=== PATIENT | male | born 1965 | race Caucasian/White ===

== ENCOUNTER 2018-08-16 02:39 | Inpatient (IN) ==
[2018-08-16] MEDS ORDERED: SODIUM CHLORIDE 0.9% 250 ML IV PRN ×2 (02:47→06:31)
[2018-08-16] MEDS ORDERED: SODIUM CHLORIDE 0.9% 1000ML 1,000 ML IV ONE (02:47)
[2018-08-16] MEDS ORDERED: PANTOprazole 80 MG in DEXTROSE 5% 100 ML IV ONE (03:05)
[2018-08-16 03:07] LABS: Hematocrit (blood only) 32.2 % (42-52); Hemoglobin 10.6 g/dL (14.0-18.0); Mean Corpuscular Hgb Conc 32.9 g/dL (32-36); Mean Corpuscular Volume 80.9 fL (80-100); Mean Platelet Volume 11.4 fL (7.4-10.4); Platelet Count 314 K/uL (130-400); RDW Coefficient of Variation 15.4 % (11.5-14.5); RDW Standard Deviation 44.5 fL (36.4-46.3); Red Blood Count 3.98 M/uL (4.7-6.1); White Blood Count 25.35 K/uL (4.8-10.8)
[2018-08-16] MEDS ORDERED: MULTI-VITAMIN INFUSION 10 ML, THIAMINE HCL 100 MG, FOLIC ACID 1 MG in SODIUM CHLORIDE 0... IV SCH ×2 (03:15→09:00)
[2018-08-16 03:23] LABS: Albumin Level 3.8 gm/dl (3.4-5.0); BUN Creatinine Ratio 32.9 (10-20); Calcium 9.2 mg/dl (8.5-10.1); Creatinine Clr Calc Pharmacy 45.5 ml/min; Est GFR (Non-African American) 34.5; Magnesium 1.6 mg/dl (1.8-2.4); Potassium 3.4 mmol/L (3.5-5.1)
[2018-08-16 03:28] LABS: Bilirubin,Total 0.8 mg/dl (0.2-1); Globulin 3.8 gm/dl (2.5-4.0); Total Protein 7.6 gm/dl (6.4-8.2); Troponin I 0.04 ng/ml (0-0.045)
[2018-08-16] MEDS: PANTOPRAZOLE BOLUS/DRIP 1 EA IV STA ×2 (03:34→07:07)
[2018-08-16 03:35] LABS: Basophils # (auto) 0.02 K/uL (0-0.2); Basophils % (auto) 0.1 %; Immature Granulocytes # (auto) 0.11 K/uL (0.00-0.02); Immature Granulocytes % (auto) 0.4 %; Lymphocytes # (auto) 1.76 K/uL (1.2-3.4); Lymphocytes % (auto) 6.9 %; Monocytes # (auto) 1.97 K/uL (0.11-0.59); Monocytes % (auto) 7.8 %; Neutrophils # (auto) 21.49 K/uL (1.4-6.5); Neutrophils % (auto) 84.8 %
[2018-08-16] MEDS ORDERED: ACETAMINOPHEN 1,000 MG/100 ML VIAL IV STA (03:46)
[2018-08-16] MEDS ORDERED: cefTRIAXone SODIUM 1,000 MG/50 ML BAG IV STA (03:46)
[2018-08-16] MEDS: PANTOprazole 40 MG in DEXTROSE 5% 100 ML IV SCH ×5 (03:52→23:57)
[2018-08-16] MEDS ORDERED: MAGNESIUM SULFATE / D5W 1 GM/100 ML BAG IV ONE ×2 (03:52→09:00)
[2018-08-16 04:44] LABS: Hematocrit (blood only) 26.2 % (42-52); Hemoglobin 8.7 g/dL (14.0-18.0); Mean Corpuscular Hgb Conc 33.2 g/dL (32-36); Mean Corpuscular Volume 80.4 fL (80-100); Mean Platelet Volume 10.5 fL (7.4-10.4); Platelet Count 215 K/uL (130-400); RDW Coefficient of Variation 15.3 % (11.5-14.5); Red Blood Count 3.26 M/uL (4.7-6.1); White Blood Count 20.06 K/uL (4.8-10.8)
[2018-08-16] MEDS ORDERED: OCTREOTIDE ACETATE 50 MCG in SYRINGE 9.5 ML IV STA (04:46)
[2018-08-16 04:54] LABS: INR 1.2 (0.9-1.1)
[2018-08-16] MEDS ORDERED: SODIUM CHLORIDE 0.9% 1000ML 1,000 ML IV SCH (05:00)
[2018-08-16 05:03] LABS: BUN Creatinine Ratio 37.3 (10-20); Calcium 7.8 mg/dl (8.5-10.1); Est GFR (African American) 51.5; Est GFR (Non-African American) 44.4; Potassium 3.7 mmol/L (3.5-5.1)
[2018-08-16] MEDS: OCTREOTIDE ACETATE 500 MCG in 0.9 % SODIUM CHLORIDE 100 ML IV SCH ×3 (05:04→23:57)
[2018-08-16] MEDS ORDERED: LORazepam 0.5 MG/1 ML VIAL IV STA (05:12)
[2018-08-16] MEDS ORDERED: ONDANSETRON INJ 2 MG/ML 2 ML VIAL IV STA (05:12)
[2018-08-16] MEDS ORDERED: ONDANSETRON INJ 2 MG/ML 2 ML VIAL ONE (05:12)
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
[2018-08-16] MEDS ORDERED: ALBUT/IPRATROP 3MG/0.5MG NEB 3 ML VIAL INH PRN (06:07)
[2018-08-16] MEDS ORDERED: ICU PROTOCOL FOR HYPERGLYCEMIA PRN (06:07)
[2018-08-16] MEDS ORDERED: LORazepam 1 MG/2 ML VIAL IV PRN (06:38)
--- NOTE | 2018-08-16 06:53 | CT Scan Report ---
CT SCAN OF THE ABDOMEN AND PELVIS WITHOUT CONTRAST CLINICAL HISTORY: left abd pain PERSISTENT HICCUPS COMPARISON STUDY: No previous studies for comparison. TECHNIQUE: CT scan of the abdomen and pelvis was performed from the lung bases to the proximal femurs . Images are reviewed in the axial, sagittal, and coronal planes. IV contrast was not administered fo r this examination. A dose lowering technique was utilized adhering to the principles of ALARA. CT DOSE: 1918.55 mGy.cm FINDINGS: Lower chest: There is a moderate hiatal hernia Liver: There is severe hepatic steatosis. Gallbladder: Unremarkable. Spleen: Normal in size and attenuation. Pancreas: Unremarkable. Adrenal glands: Unremarkable. Kidneys: The unenhanced kidneys are normal in size without hydronephrosis. There is no contour deform ing renal mass lesion. No renal calculi are identified. Bowel: There are no transition zones indicate bowel obstruction. The appendix appears normal. There i s no acute diverticulitis. Peritoneum: There is no intraperitoneal free air or abdominal ascites. Vasculature: The abdominal aorta is normal in course and caliber. Adenopathy: None. Pelvic viscera: The bladder, and pelvic viscera are unremarkable. Skeletal structures: There is bilateral L4 spondylolysis. There is a grade 2/4 spondylolisthesis of L 4 on L5. IMPRESSION: 1. No evidence of bowel obstruction. No evidence of free air 2. Hiatal hernia 3. No renal, ureteral, or bladder calculi identified 4. Normal appendix. No evidence of acute diverticulitis. 5. Hepatic steatosis. Electronically signed by: Alvaro Garcia M.D. 08/16/2018 6:52 AM
--- NOTE | 2018-08-16 07:00 | XRay Report ---
XR chest 1V portable CLINICAL HISTORY: sob ABDOMINAL PAIN COMPARISON STUDY: No previous studies for comparison. FINDINGS: The heart is at the upper limits of normal in size. There is a hiatal hernia. There is no f ailure. There is no focal pulmonary consolidation. There are no pleural effusions.[ IMPRESSION: No active disease in the chest. Electronically signed by: Alvaro Garcia M.D. 08/16/2018 6:59 AM
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
[2018-08-16 07:06] LABS: Hemoglobin 8.6 g/dL (14.0-18.0)
--- NOTE | 2018-08-16 08:25 | Ultrasound Report ---
DOPPLER ULTRASOUND OF THE HEPATIC AND PORTAL VASCULATURE CLINICAL HISTORY: Upper GI bleeding. COMPARISON STUDY: Abdominal CT dated 08/16/2018. FINDINGS: Real-time, grayscale, and color Doppler sonography of the hepatic and portal vasculature is performed. The main portal vein is patent with normal direction of flow. Velocities within the main portal vein measure up to 23 cm/s. The right and left portal veins are patent with normal direction o f flow. The hepatic veins are patent. Hepatic venous waveforms are preserved. The hepatic artery is p atent with velocities measuring up to 92 cm/s. The visualized portions of the splenic vein appear pat ient. The liver is enlarged and there is severe hepatic steatosis. IMPRESSION: 1. Normal Doppler assessment of the hepatic and portal vasculature. 2. Hepatomegaly and severe hepatic steatosis. Electronically signed by: Everardo Sanches M.D. 08/16/2018 8:24 AM
[2018-08-16] MEDS: THIAMINE HCL 500 MG in 0.9 % SODIUM CHLORIDE 100 ML IV SCH ×2 (10:13→16:40)
[2018-08-16] MEDS: NSS + 20MEQ KCL 20 MEQ/1,000 ML BAG IV SCH ×3 (10:13→23:57)
[2018-08-16 10:25] LABS: Amphetamines+Metham, Urine Neg (Neg); Barbiturates, Urine Neg (Neg); Benzodiazepine, Urine Neg (Neg); Cocaine, Urine Neg (Neg); MDMA (Ecstacy), Urine Neg (Neg); Methadone, Urine Neg (Neg); Opiate, Urine Neg (Neg); Phencyclidine, Urine Neg (Neg)
[2018-08-16 10:35] LABS: Hematocrit (blood only) 29.2 % (42-52); Hemoglobin 9.9 g/dL (14.0-18.0)
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
[2018-08-16 13:28] LABS: Albumin Level 3.3 gm/dl (3.4-5.0); Bilirubin Direct 0.2 mg/dl (0-0.2); Total Protein 6.4 gm/dl (6.4-8.2)
--- NOTE | 2018-08-16 15:11 | Hospitalist Progress Note ---
Date of Service August 16, 2018 Assessment & Plan (1) Upper GI bleed: (2) Anemia: (3) Hyponatremia: (4) Hypomagnesemia: (5) Acute kidney injury: (6) Tachycardia: (7) Alcohol abuse: (8) Lactic acidosis: (9) Hyperglycemia: 53-year-old male Admitted because of upper GI bleeding, has been on a 10- day alcohol binge Prior to the admission Upper GI bleed With history of alcohol abuse, binge drinking: Differential diagnosis include varices, gastritis, peptic ulcerative disease, Esophageal mucous tearing, Etc. GI input appreciated, continueProtonix drip, octreotide drip. H&H has been stable, currently hemoglobin 9.9 from 8.6 after transfusion Follow-up H&H GI on the case, recent EGD e at [facility] approximately 6 months ago, being told that he had varices. Alcohol abuse, fatty liver, Possible signs of alcohol withdrawal Subjective upon Admission Continue with banana bag at 200 mils per hour. Alcohol withdrawal protocol Acute blood loss anemia likely from the above upper GI bleeding Hyponatremia,Hypomagnesemia, hypokalemia, Likely from binge drinking, Follow-up Acute kidney injury: Creatinine level is 1.7 from 2.13, Continue fluid rehydration and transfusions, and repeat laboratory serially. Possible sepsis Subjective admission with Which is supported by leukocytosis increased anion gap, and elevated lactase Has been on Rocephin IV antibiotic,Leukocytosis improving,Lactase trends down Continue Empiric antibiotic and follow-up culture results Tachycardia, Elevated blood pressure, likely from alcohol withdrawal Alcohol abuse: Continue on the AWSS protocol. GI DVT px Subjective Report hungry want to eat some food mild Shaky in hands, Denies hallucination Denies emesis or vomiting blood, Denies anxiety depression, Review of Systems Positiveweakness, or fatigue no cough, sputum, wheezing, No chest pain, No orthopnea, Abdomen: No pain, No nausea, No vomiting, No diarrhea, No dysuria, No urinary frequency, No incontinence, No hematuria No paralysis, No weakness, No numbness/tingling, No vertigo, ight sweats Skin: No rash, No itch, No new/changing skin lesions, No color change, No bleeding Physical Exam Vital Signs (Past 24 Hours): Last Vital Signs Temp 36.9 C 08/16/18 12:00 Pulse 119 H 08/16/18 14:00 Resp 16 08/16/18 14:00 BP 143/74 H 08/16/18 14:00 Pulse Ox 97 08/16/18 14:00 Physical Exam: Pleasant, conversational, no acute distress. HEENT--PERRL, EOMI, mucous membranes and oropharynx moist Neck--supple. No JVD. No bruits. Thyroid normal, trachea midline, no adenopathy. Heart--tachycardic, regular rhythm, no murmurs, rubs or gallops. Lungs--clear bilaterally, no respiratory distress, no accessory muscle use. Abdomen--normal bowel sounds and soft. Nontender. Nondistended. Extremities--no cyanosis or clubbing. No edema. skin: normal color, no abnormal lymph nodes, no rash. Neurologic--cranial nerves II through XII grossly intact. Awake alert orientated, x3 , normal affect. Results & Data Laboratory Results Laboratory Results - last 24 hr 08/16/18 08/16/18 08/16/18 02:52 02:52 02:52 WBC 25.35 H RBC 3.98 L Hgb 10.6 L Hct 32.2 L MCV 80.9 MCH 26.6 MCHC 32.9 RDW Std Deviation 44.5 RDW Coeff of Aaron 15.4 H Plt Count 314 MPV 11.4 H Immature Gran % (Auto) 0.4 Neut % (Auto) 84.8 Lymph % (Auto) 6.9 [place] % (Auto) 7.8 Eos % (Auto) 0.0 Baso % (Auto) 0.1 Immature Gran # (Auto) 0.11 H Neut # (Auto) 21.49 H Lymph # (Auto) 1.76 [place] # (Auto) 1.97 H Eos # (Auto) 0.00 Baso # (Auto) 0.02 PT INR Sodium Potassium Chloride Carbon Dioxide Anion Gap BUN Creatinine Est Cr Clr Drug Dosing Est GFR ( Amer) Est GFR (Non-Af Amer) BUN/Creatinine Ratio Glucose POC Glucose Lactate Calcium Magnesium Total Bilirubin Direct Bilirubin AST ALT Alkaline Phosphatase Ammonia 20.0 Troponin I Total Protein Albumin Globulin Albumin/Globulin Ratio Lipase Folate Nasal Screen MRSA (PCR) Stool Occult Bld Scrn Urine Opiates Screen Ur Methadone, Qual Urine Barbiturates Ur Phencyclidine (PCP) U Amphetamin/Meth Scrn MDMA (Ecstasy) Screen U Benzodiazepines Scrn Ur Cocaine Metabolite U Marijuana (THC) Screen Ethyl Alcohol mg/dL Blood Type A Positive Blood Type Recheck Antibody Screen NEGATIVE Crossmatch See Detail 08/16/18 08/16/18 08/16/18 02:52 02:52 02:52 WBC RBC Hgb Hct MCV MCH MCHC RDW Std Deviation RDW Coeff of Aaron Plt Count MPV Immature Gran % (Auto) Neut % (Auto) Lymph % (Auto) [place] % (Auto) Eos % (Auto) Baso % (Auto) Immature Gran # (Auto) Neut # (Auto) Lymph # (Auto) [place] # (Auto) Eos # (Auto) Baso # (Auto) PT INR Sodium 125 L Potassium 3.4 L Chloride 80 L Carbon Dioxide 26 Anion Gap 19.0 H BUN 70 H Creatinine 2.13 H Est Cr Clr Drug Dosing 45.5 Est GFR ( Amer) 40.0 Est GFR (Non-Af Amer) 34.5 BUN/Creatinine Ratio 32.9 H Glucose 197 H POC Glucose Lactate 10.2 H* Calcium 9.2 Magnesium 1.6 L Total Bilirubin 0.8 Direct Bilirubin AST 28 ALT 32 Alkaline Phosphatase 66 Ammonia Troponin I 0.040 Total Protein 7.6 Albumin 3.8 Globulin 3.8 Albumin/Globulin Ratio 1.0 Lipase 109 Folate Nasal Screen MRSA (PCR) Stool Occult Bld Scrn Urine Opiates Screen Ur Methadone, Qual Urine Barbiturates Ur Phencyclidine (PCP) U Amphetamin/Meth Scrn MDMA (Ecstasy) Screen U Benzodiazepines Scrn Ur Cocaine Metabolite U Marijuana (THC) Screen Ethyl Alcohol mg/dL < 3.0 Blood Type Blood Type Recheck Antibody Screen Crossmatch 08/16/18 08/16/18 08/16/18 04:37 04:37 04:37 WBC 20.06 H RBC 3.26 L Hgb 8.7 L Hct 26.2 L MCV 80.4 MCH 26.7 MCHC 33.2 RDW Std Deviation 44.0 RDW Coeff of Aaron 15.3 H Plt Count 215 MPV 10.5 H Immature Gran % (Auto) Neut % (Auto) Lymph % (Auto) [place] % (Auto) Eos % (Auto) Baso % (Auto) Immature Gran # (Auto) Neut # (Auto) Lymph # (Auto) [place] # (Auto) Eos # (Auto) Baso # (Auto) PT INR Sodium 128 L Potassium 3.7 Chloride 87 L Carbon Dioxide 29 Anion Gap 12.0 H BUN 65 H Creatinine 1.73 H D Est Cr Clr Drug Dosing 56.0 Est GFR ( Amer) 51.5 Est GFR (Non-Af Amer) 44.4 BUN/Creatinine Ratio 37.3 H Glucose 159 H POC Glucose Lactate 6.3 H* Calcium 7.8 L D Magnesium Total Bilirubin Direct Bilirubin AST ALT Alkaline Phosphatase Ammonia Troponin I Total Protein Albumin Globulin Albumin/Globulin Ratio Lipase Folate Nasal Screen MRSA (PCR) Stool Occult Bld Scrn Urine Opiates Screen Ur Methadone, Qual Urine Barbiturates Ur Phencyclidine (PCP) U Amphetamin/Meth Scrn MDMA (Ecstasy) Screen U Benzodiazepines Scrn Ur Cocaine Metabolite U Marijuana (THC) Screen Ethyl Alcohol mg/dL Blood Type Blood Type Recheck Antibody Screen Crossmatch 08/16/18 08/16/18 08/16/18 04:37 04:53 06:05 WBC RBC Hgb Hct MCV MCH MCHC RDW Std Deviation RDW Coeff of Aaron Plt Count MPV Immature Gran % (Auto) Neut % (Auto) Lymph % (Auto) [place] % (Auto) Eos % (Auto) Baso % (Auto) Immature Gran # (Auto) Neut # (Auto) Lymph # (Auto) [place] # (Auto) Eos # (Auto) Baso # (Auto) PT 12.0 INR 1.2 H Sodium Potassium Chloride Carbon Dioxide Anion Gap BUN Creatinine Est Cr Clr Drug Dosing Est GFR ( Amer) Est GFR (Non-Af Amer) BUN/Creatinine Ratio Glucose POC Glucose Lactate Calcium Magnesium Total Bilirubin Direct Bilirubin AST ALT Alkaline Phosphatase Ammonia Troponin I Total Protein Albumin Globulin Albumin/Globulin Ratio Lipase Folate Nasal Screen MRSA (PCR) Negative Stool Occult Bld Scrn Urine Opiates Screen Ur Methadone, Qual Urine Barbiturates Ur Phencyclidine (PCP) U Amphetamin/Meth Scrn MDMA (Ecstasy) Screen U Benzodiazepines Scrn Ur Cocaine Metabolite U Marijuana (THC) Screen Ethyl Alcohol mg/dL Blood Type Blood Type Recheck A Positive Antibody Screen Crossmatch 08/16/18 08/16/18 08/16/18 06:48 07:00 07:00 WBC RBC Hgb 8.6 L Hct 26.0 L MCV MCH MCHC RDW Std Deviation RDW Coeff of Aaron Plt Count MPV Immature Gran % (Auto) Neut % (Auto) Lymph % (Auto) [place] % (Auto) Eos % (Auto) Baso % (Auto) Immature Gran # (Auto) Neut # (Auto) Lymph # (Auto) [place] # (Auto) Eos # (Auto) Baso # (Auto) PT INR Sodium Potassium Chloride Carbon Dioxide Anion Gap BUN Creatinine Est Cr Clr Drug Dosing Est GFR ( Amer) Est GFR (Non-Af Amer) BUN/Creatinine Ratio Glucose POC Glucose Lactate Calcium Magnesium Total Bilirubin Direct Bilirubin AST ALT Alkaline Phosphatase Ammonia Troponin I Total Protein Albumin Globulin Albumin/Globulin Ratio Lipase Folate > 24.00 Nasal Screen MRSA (PCR) Stool Occult Bld Scrn Positive H Urine Opiates Screen Ur Methadone, Qual Urine Barbiturates Ur Phencyclidine (PCP) U Amphetamin/Meth Scrn MDMA (Ecstasy) Screen U Benzodiazepines Scrn Ur Cocaine Metabolite U Marijuana (THC) Screen Ethyl Alcohol mg/dL Blood Type Blood Type Recheck Antibody Screen Crossmatch 08/16/18 08/16/18 08/16/18 07:55 09:30 10:21 WBC RBC Hgb Hct MCV MCH MCHC RDW Std Deviation RDW Coeff of Aaron Plt Count MPV Immature Gran % (Auto) Neut % (Auto) Lymph % (Auto) [place] % (Auto) Eos % (Auto) Baso % (Auto) Immature Gran # (Auto) Neut # (Auto) Lymph # (Auto) [place] # (Auto) Eos # (Auto) Baso # (Auto) PT INR Sodium Potassium Chloride Carbon Dioxide Anion Gap BUN Creatinine Est Cr Clr Drug Dosing Est GFR ( Amer) Est GFR (Non-Af Amer) BUN/Creatinine Ratio Glucose POC Glucose 162 H Lactate Calcium Magnesium Total Bilirubin 1.0 Direct Bilirubin 0.2 AST 28 ALT 24 Alkaline Phosphatase 66 Ammonia Troponin I Total Protein 6.4 Albumin 3.3 L Globulin Albumin/Globulin Ratio Lipase Folate Nasal Screen MRSA (PCR) Stool Occult Bld Scrn Urine Opiates Screen Neg Ur Methadone, Qual Neg Urine Barbiturates Neg Ur Phencyclidine (PCP) Neg U Amphetamin/Meth Scrn Neg MDMA (Ecstasy) Screen Neg U Benzodiazepines Scrn Neg Ur Cocaine Metabolite Neg U Marijuana (THC) Screen Neg Ethyl Alcohol mg/dL Blood Type Blood Type Recheck Antibody Screen Crossmatch 08/16/18 08/16/18 10:26 10:26 WBC RBC Hgb 9.9 L Hct 29.2 L MCV MCH MCHC RDW Std Deviation RDW Coeff of Aaron Plt Count MPV Immature Gran % (Auto) Neut % (Auto) Lymph % (Auto) [place] % (Auto) Eos % (Auto) Baso % (Auto) Immature Gran # (Auto) Neut # (Auto) Lymph # (Auto) [place] # (Auto) Eos # (Auto) Baso # (Auto) PT INR Sodium Potassium Chloride Carbon Dioxide Anion Gap BUN Creatinine Est Cr Clr Drug Dosing Est GFR ( Amer) Est GFR (Non-Af Amer) BUN/Creatinine Ratio Glucose POC Glucose Lactate 2.2 H* Calcium Magnesium Total Bilirubin Direct Bilirubin AST ALT Alkaline Phosphatase Ammonia Troponin I Total Protein Albumin Globulin Albumin/Globulin Ratio Lipase Folate Nasal Screen MRSA (PCR) Stool Occult Bld Scrn Urine Opiates Screen Ur Methadone, Qual Urine Barbiturates Ur Phencyclidine (PCP) U Amphetamin/Meth Scrn MDMA (Ecstasy) Screen U Benzodiazepines Scrn Ur Cocaine Metabolite U Marijuana (THC) Screen Ethyl Alcohol mg/dL Blood Type Blood Type Recheck Antibody Screen Crossmatch (1) Anemia Anemia type: other cause Other causes of anemia: acute posthemorrhagic Qualified Code(s): D62 - Acute posthemorrhagic anemia
[2018-08-16 16:25] LABS: Hematocrit (blood only) 27.2 % (42-52)
[2018-08-16 16:46] LABS: BUN Creatinine Ratio 22.5 (10-20); Calcium 7.4 mg/dl (8.5-10.1); Creatinine Clr Calc Pharmacy 65.1 ml/min; Est GFR (African American) 61.7; Est GFR (Non-African American) 53.2; Magnesium 2.2 mg/dl (1.8-2.4); Potassium 3.9 mmol/L (3.5-5.1)
[2018-08-16] MEDS: POT PHOSPHATE MONOBASIC W/ SOD TAB PO SCH ×2 (18:02→19:31)
[2018-08-16] MEDS: PROPRANOLOL HCL 10 MG TAB PO SCH ×2 (18:03→19:31)
[2018-08-16] MEDS: MAGNESIUM OXIDE 400 MG TAB PO SCH (19:31)
[2018-08-16] MEDS: ACETAMINOPHEN SOL 650 MG/20.3 ML UDC PO PRN (19:31)
[2018-08-16 23:17] LABS: Hematocrit (blood only) 25.8 % (42-52); Hemoglobin 8.5 g/dL (14.0-18.0)
[2018-08-17] MEDS: THIAMINE HCL 500 MG in 0.9 % SODIUM CHLORIDE 100 ML IV SCH (01:04)
[2018-08-17] MEDS: cefTRIAXone SODIUM 1,000 MG in DEXTROSE 5% 50 ML IV SCH (04:08)
[2018-08-17] MEDS: PANTOprazole 40 MG in DEXTROSE 5% 100 ML IV SCH ×2 (04:08→09:21)
[2018-08-17 04:58] LABS: Basophils # (auto) 0.01 K/uL (0-0.2); Basophils % (auto) 0.1 %; Eosinophils # (auto) 0.03 K/uL (0-0.5); Eosinophils % (auto) 0.3 %; Hematocrit (blood only) 26.2 % (42-52); Hemoglobin 8.5 g/dL (14.0-18.0); Immature Granulocytes # (auto) 0.05 K/uL (0.00-0.02); Immature Granulocytes % (auto) 0.5 %; Lymphocytes # (auto) 1.64 K/uL (1.2-3.4); Lymphocytes % (auto) 15.8 %; Mean Corpuscular Hgb Conc 32.4 g/dL (32-36); Mean Corpuscular Volume 83.4 fL (80-100); Mean Platelet Volume 10.6 fL (7.4-10.4); Monocytes # (auto) 0.75 K/uL (0.11-0.59); Monocytes % (auto) 7.2 %; Neutrophils # (auto) 7.92 K/uL (1.4-6.5); Neutrophils % (auto) 76.1 %; Nucleated RBC # (auto) 0.04 K/uL (0-0); Nucleated RBC % (auto) 0.4 %; Platelet Count 172 K/uL (130-400); RDW Coefficient of Variation 15.6 % (11.5-14.5); RDW Standard Deviation 46.3 fL (36.4-46.3); Red Blood Count 3.14 M/uL (4.7-6.1)
[2018-08-17 05:13] LABS: INR 1.1 (0.9-1.1); Partial Thromboplastin Ratio 0.9; Partial Thromboplastin Time 23.6 Seconds (21.0-31.0); Prothrombin Time 10.8 Seconds (9.0-12.0)
[2018-08-17 05:15] LABS: Giant Platelets 1+; Polychromasia 1+
[2018-08-17 05:36] LABS: Albumin Level 2.9 gm/dl (3.4-5.0); BUN Creatinine Ratio 15.8 (10-20); Bilirubin Direct 0.1 mg/dl (0-0.2); Bilirubin,Total 0.3 mg/dl (0.2-1); Calcium 7.3 mg/dl (8.5-10.1); Est GFR (African American) 101.1; Est GFR (Non-African American) 87.2; Magnesium 2.3 mg/dl (1.8-2.4); Phosphorus 1.3 mg/dl (2.5-4.9)
[2018-08-17] MEDS ORDERED: POTASSIUM PHOS 3 MMOL/1 ML INFUSION IV STA (05:47)
[2018-08-17] MEDS ORDERED: POTASSIUM PHOSPHATE 15 MMOL in SODIUM CHLORIDE 0.9% 250 ML IV ONE (06:15)
--- NOTE | 2018-08-17 06:56 | Emergency Department Note ---
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 Seconds PTT Ratio Sodium (136-145) mmol/L Potassium (3.5-5.1) mmol/L Chloride (98-107) mmol/L Carbon Dioxide (21-32) mmol/L Anion Gap (3-11) BUN (7-18) mg/dl Creatinine (0.6-1.4) mg/dl Est Cr Clr Drug Dosing ml/min Est GFR ( Amer) Est GFR (Non-Af Amer) BUN/Creatinine Ratio (10-20) Glucose (70-99) mg/dl POC Glucose (70-99) Lactate (0.4-2.0) mmol/L Calcium (8.5-10.1) mg/dl Phosphorus (2.5-4.9) mg/dl Magnesium (1.8-2.4) mg/dl Total Bilirubin (0.2-1) mg/dl Direct Bilirubin (0-0.2) mg/dl AST (15-37) U/L ALT (12-78) U/L Alkaline Phosphatase (45-117) U/L Ammonia (11-32) umol/L Troponin I (0-0.045) ng/ml Total Protein (6.4-8.2) gm/dl Albumin (3.4-5.0) gm/dl Globulin (2.5-4.0) gm/dl Albumin/Globulin Ratio (0.9-2) Lipase (73-393) U/L Folate > 24.00 (>5.38) ng/ml Nasal Screen MRSA (PCR) (Negative) Stool Occult Bld Scrn Positive H (Negative) Urine Opiates Screen (Neg) Ur Methadone, Qual (Neg) Urine Barbiturates (Neg) Ur Phencyclidine (PCP) (Neg) U Amphetamin/Meth Scrn (Neg) MDMA (Ecstasy) Screen (Neg) U Benzodiazepines Scrn (Neg) Ur Cocaine Metabolite (Neg) U Marijuana (THC) Screen (Neg) Ethyl Alcohol mg/dL (0-3) mg/dl Blood Type Blood Type Recheck Antibody Screen Crossmatch 08/16/18 08/16/18 08/16/18 Range/Units 07:55 09:30 10:21 WBC (4.8-10.8) K/uL RBC (4.7-6.1) M/uL Hgb (14.0-18.0) g/dL Hct (42-52) % MCV (80-100) fL MCH (25-34) pg MCHC (32-36) g/dL RDW Std Deviation (36.4-46.3) fL RDW Coeff of Aaron (11.5-14.5) % Plt Count (130-400) K/uL MPV (7.4-10.4) fL Immature Gran % (Auto) % Neut % (Auto) % Lymph % (Auto) % [place] % (Auto) % Eos % (Auto) % Baso % (Auto) % Immature Gran # (Auto) (0.00-0.02) K/uL Neut # (Auto) (1.4-6.5) K/uL Lymph # (Auto) (1.2-3.4) K/uL [place] # (Auto) (0.11-0.59) K/uL Eos # (Auto) (0-0.5) K/uL Baso # (Auto) (0-0.2) K/uL Absolute Nucleated RBC (0-0) K/uL Nucleated RBC % (auto) % Giant Platelets Polychromasia PT (9.0-12.0) Seconds INR (0.9-1.1) APTT (21.0-31.0) Seconds PTT Ratio Sodium (136-145) mmol/L Potassium (3.5-5.1) mmol/L Chloride (98-107) mmol/L Carbon Dioxide (21-32) mmol/L Anion Gap (3-11) BUN (7-18) mg/dl Creatinine (0.6-1.4) mg/dl Est Cr Clr Drug Dosing ml/min Est GFR ( Amer) Est GFR (Non-Af Amer) BUN/Creatinine Ratio (10-20) Glucose (70-99) mg/dl POC Glucose 162 H (70-99) Lactate (0.4-2.0) mmol/L Calcium (8.5-10.1) mg/dl Phosphorus (2.5-4.9) mg/dl Magnesium (1.8-2.4) mg/dl Total Bilirubin 1.0 (0.2-1) mg/dl Direct Bilirubin 0.2 (0-0.2) mg/dl AST 28 (15-37) U/L ALT 24 (12-78) U/L Alkaline Phosphatase 66 (45-117) U/L Ammonia (11-32) umol/L Troponin I (0-0.045) ng/ml Total Protein 6.4 (6.4-8.2) gm/dl Albumin 3.3 L (3.4-5.0) gm/dl Globulin (2.5-4.0) gm/dl Albumin/Globulin Ratio (0.9-2) Lipase (73-393) U/L Folate (>5.38) ng/ml Nasal Screen MRSA (PCR) (Negative) Stool Occult Bld Scrn (Negative) Urine Opiates Screen Neg (Neg) Ur Methadone, Qual Neg (Neg) Urine Barbiturates Neg (Neg) Ur Phencyclidine (PCP) Neg (Neg) U Amphetamin/Meth Scrn Neg (Neg) MDMA (Ecstasy) Screen Neg (Neg) U Benzodiazepines Scrn Neg (Neg) Ur Cocaine Metabolite Neg (Neg) U Marijuana (THC) Screen Neg (Neg) Ethyl Alcohol mg/dL (0-3) mg/dl Blood Type Blood Type Recheck Antibody Screen Crossmatch 08/16/18 08/16/18 08/16/18 Range/Units 10:26 10:26 16:16 WBC (4.8-10.8) K/uL RBC (4.7-6.1) M/uL Hgb 9.9 L (14.0-18.0) g/dL Hct 29.2 L (42-52) % MCV (80-100) fL MCH (25-34) pg MCHC (32-36) g/dL RDW Std Deviation (36.4-46.3) fL RDW Coeff of Aaron (11.5-14.5) % Plt Count (130-400) K/uL MPV (7.4-10.4) fL Immature Gran % (Auto) % Neut % (Auto) % Lymph % (Auto) % [place] % (Auto) % Eos % (Auto) % Baso % (Auto) % Immature Gran # (Auto) (0.00-0.02) K/uL Neut # (Auto) (1.4-6.5) K/uL Lymph # (Auto) (1.2-3.4) K/uL [place] # (Auto) (0.11-0.59) K/uL Eos # (Auto) (0-0.5) K/uL Baso # (Auto) (0-0.2) K/uL Absolute Nucleated RBC (0-0) K/uL Nucleated RBC % (auto) % Giant Platelets Polychromasia PT (9.0-12.0) Seconds INR (0.9-1.1) APTT (21.0-31.0) Seconds PTT Ratio Sodium (136-145) mmol/L Potassium (3.5-5.1) mmol/L Chloride (98-107) mmol/L Carbon Dioxide (21-32) mmol/L Anion Gap (3-11) BUN (7-18) mg/dl Creatinine (0.6-1.4) mg/dl Est Cr Clr Drug Dosing ml/min Est GFR ( Amer) Est GFR (Non-Af Amer) BUN/Creatinine Ratio (10-20) Glucose (70-99) mg/dl POC Glucose (70-99) Lactate 2.2 H* 3.8 H* (0.4-2.0) mmol/L Calcium (8.5-10.1) mg/dl Phosphorus (2.5-4.9) mg/dl Magnesium (1.8-2.4) mg/dl Total Bilirubin (0.2-1) mg/dl Direct Bilirubin (0-0.2) mg/dl AST (15-37) U/L ALT (12-78) U/L Alkaline Phosphatase (45-117) U/L Ammonia (11-32) umol/L Troponin I (0-0.045) ng/ml Total Protein (6.4-8.2) gm/dl Albumin (3.4-5.0) gm/dl Globulin (2.5-4.0) gm/dl Albumin/Globulin Ratio (0.9-2) Lipase (73-393) U/L Folate (>5.38) ng/ml Nasal Screen MRSA (PCR) (Negative) Stool Occult Bld Scrn (Negative) Urine Opiates Screen (Neg) Ur Methadone, Qual (Neg) Urine Barbiturates (Neg) Ur Phencyclidine (PCP) (Neg) U Amphetamin/Meth Scrn (Neg) MDMA (Ecstasy) Screen (Neg) U Benzodiazepines Scrn (Neg) Ur Cocaine Metabolite (Neg) U Marijuana (THC) Screen (Neg) Ethyl Alcohol mg/dL (0-3) mg/dl Blood Type Blood Type Recheck Antibody Screen Crossmatch 08/16/18 08/16/18 08/16/18 Range/Units 16:16 16:16 23:07 WBC (4.8-10.8) K/uL RBC (4.7-6.1) M/uL Hgb 9.0 L 8.5 L (14.0-18.0) g/dL Hct 27.2 L 25.8 L (42-52) % MCV (80-100) fL MCH (25-34) pg MCHC (32-36) g/dL RDW Std Deviation (36.4-46.3) fL RDW Coeff of Aaron (11.5-14.5) % Plt Count (130-400) K/uL MPV (7.4-10.4) fL Immature Gran % (Auto) % Neut % (Auto) % Lymph % (Auto) % [place] % (Auto) % Eos % (Auto) % Baso % (Auto) % Immature Gran # (Auto) (0.00-0.02) K/uL Neut # (Auto) (1.4-6.5) K/uL Lymph # (Auto) (1.2-3.4) K/uL [place] # (Auto) (0.11-0.59) K/uL Eos # (Auto) (0-0.5) K/uL Baso # (Auto) (0-0.2) K/uL Absolute Nucleated RBC (0-0) K/uL Nucleated RBC % (auto) % Giant Platelets Polychromasia PT (9.0-12.0) Seconds INR (0.9-1.1) APTT (21.0-31.0) Seconds PTT Ratio Sodium 128 L (136-145) mmol/L Potassium 3.9 (3.5-5.1) mmol/L Chloride 93 L (98-107) mmol/L Carbon Dioxide 29 (21-32) mmol/L Anion Gap 6.0 (3-11) BUN 34 H (7-18) mg/dl Creatinine 1.49 H (0.6-1.4) mg/dl Est Cr Clr Drug Dosing 65.1 ml/min Est GFR ( Amer) 61.7 Est GFR (Non-Af Amer) 53.2 BUN/Creatinine Ratio 22.5 H (10-20) Glucose 176 H (70-99) mg/dl POC Glucose (70-99) Lactate (0.4-2.0) mmol/L Calcium 7.4 L (8.5-10.1) mg/dl Phosphorus 1.0 L* (2.5-4.9) mg/dl Magnesium 2.2 (1.8-2.4) mg/dl Total Bilirubin (0.2-1) mg/dl Direct Bilirubin (0-0.2) mg/dl AST (15-37) U/L ALT (12-78) U/L Alkaline Phosphatase (45-117) U/L Ammonia (11-32) umol/L Troponin I (0-0.045) ng/ml Total Protein (6.4-8.2) gm/dl Albumin (3.4-5.0) gm/dl Globulin (2.5-4.0) gm/dl Albumin/Globulin Ratio (0.9-2) Lipase (73-393) U/L Folate (>5.38) ng/ml Nasal Screen MRSA (PCR) (Negative) Stool Occult Bld Scrn (Negative) Urine Opiates Screen (Neg) Ur Methadone, Qual (Neg) Urine Barbiturates (Neg) Ur Phencyclidine (PCP) (Neg) U Amphetamin/Meth Scrn (Neg) MDMA (Ecstasy) Screen (Neg) U Benzodiazepines Scrn (Neg) Ur Cocaine Metabolite (Neg) U Marijuana (THC) Screen (Neg) Ethyl Alcohol mg/dL (0-3) mg/dl Blood Type Blood Type Recheck Antibody Screen Crossmatch 08/17/18 08/17/18 08/17/18 Range/Units 04:50 04:50 04:50 WBC 10.40 (4.8-10.8) K/uL RBC 3.14 L (4.7-6.1) M/uL Hgb 8.5 L (14.0-18.0) g/dL Hct 26.2 L (42-52) % MCV 83.4 (80-100) fL MCH 27.1 (25-34) pg MCHC 32.4 (32-36) g/dL RDW Std Deviation 46.3 (36.4-46.3) fL RDW Coeff of Aaron 15.6 H (11.5-14.5) % Plt Count 172 (130-400) K/uL MPV 10.6 H (7.4-10.4) fL Immature Gran % (Auto) 0.5 % Neut % (Auto) 76.1 % Lymph % (Auto) 15.8 % [place] % (Auto) 7.2 % Eos % (Auto) 0.3 % Baso % (Auto) 0.1 % Immature Gran # (Auto) 0.05 H (0.00-0.02) K/uL Neut # (Auto) 7.92 H (1.4-6.5) K/uL Lymph # (Auto) 1.64 (1.2-3.4) K/uL [place] # (Auto) 0.75 H (0.11-0.59) K/uL Eos # (Auto) 0.03 (0-0.5) K/uL Baso # (Auto) 0.01 (0-0.2) K/uL Absolute Nucleated RBC 0.04 H (0-0) K/uL Nucleated RBC % (auto) 0.4 % Giant Platelets 1+ Polychromasia 1+ PT 10.8 (9.0-12.0) Seconds INR 1.1 (0.9-1.1) APTT 23.6 (21.0-31.0) Seconds PTT Ratio 0.9 Sodium 136 D (136-145) mmol/L Potassium 4.0 (3.5-5.1) mmol/L Chloride 105 (98-107) mmol/L Carbon Dioxide 27 (21-32) mmol/L Anion Gap 4.0 (3-11) BUN 16 D (7-18) mg/dl Creatinine 0.99 D (0.6-1.4) mg/dl Est Cr Clr Drug Dosing 98.0 ml/min Est GFR ( Amer) 101.1 Est GFR (Non-Af Amer) 87.2 BUN/Creatinine Ratio 15.8 (10-20) Glucose 116 H (70-99) mg/dl POC Glucose (70-99) Lactate (0.4-2.0) mmol/L Calcium 7.3 L (8.5-10.1) mg/dl Phosphorus 1.3 L* (2.5-4.9) mg/dl Magnesium 2.3 (1.8-2.4) mg/dl Total Bilirubin 0.3 D (0.2-1) mg/dl Direct Bilirubin 0.1 (0-0.2) mg/dl AST 26 (15-37) U/L ALT 23 (12-78) U/L Alkaline Phosphatase 52 (45-117) U/L Ammonia (11-32) umol/L Troponin I (0-0.045) ng/ml Total Protein 6.0 L (6.4-8.2) gm/dl Albumin 2.9 L (3.4-5.0) gm/dl Globulin (2.5-4.0) gm/dl Albumin/Globulin Ratio (0.9-2) Lipase 1909 H (73-393) U/L Folate (>5.38) ng/ml Nasal Screen MRSA (PCR) (Negative) Stool Occult Bld Scrn (Negative) Urine Opiates Screen (Neg) Ur Methadone, Qual (Neg) Urine Barbiturates (Neg) Ur Phencyclidine (PCP) (Neg) U Amphetamin/Meth Scrn (Neg) MDMA (Ecstasy) Screen (Neg) U Benzodiazepines Scrn (Neg) Ur Cocaine Metabolite (Neg) U Marijuana (THC) Screen (Neg) Ethyl Alcohol mg/dL (0-3) mg/dl Blood Type Blood Type Recheck Antibody Screen Crossmatch Imaging Data Attestation: I personally reviewed and interpreted this imaging study as follows: My Impression: XR Chest 1V portable: No cardiomegaly. No effusions. No wide mediastinum. No focal consolidation. No acute pulmonary edema. Radiologist's Impression: Radiology results as stated below per my review and the radiologist's interpretation: CT ABDOMEN & PELVIS Without Contrast: No evidence of acute abnormality in the abdomen or pelvis on noncontrast CT to account for left abdominal pain. Moderate hiatal hernia. Suspect wall thickening of visualized distal esophagus which may be related to esophagitis in the setting of gastro esophageal reflux disease or other process. No bowel obstruction, significant bowel wall thickening, free fluid or free air. No evidence of acute appendicitis. Enlarged fatty liver. Incidental findings: Few colonic diverticula without evidence of acute diverticulitis. Atherosclerotic vascular disease without abdominal aortic aneurysm. L5 pars defects with 16 mm anterolisthesis at L5-S1. Mild osseous degenerative changes. Radiologist: Pilar Hall MD Study ready at 0443 and initial results transmitted at 0514. ECG Data Attestation: I personally reviewed and interpreted this ECG as follows: Indication: weakness Rate (beats per minute): 139 Rhythm: sinus tachycardia Findings: + other (Normal axis. Normal interval.) and + T-wave inversion (In Lead 1 and aVL.) Blood Pressure Blood Pressure Findings: Normal blood pressure Blood Pressure Disposition: further management by hospitalist [facility] Narrative Patient here ill-appearing, and critically ill with tachycardia and hypotension in the setting of likely GI bleed. Patient describes melena recently and melena noted on his person. Patient with intermittent left-sided abdominal pain. Patient does have history of alcohol abuse. Patient's hypotension improved with IV fluids, patient with no hematemesis noted here even with active vomiting. Labs sent and type and cross for 2 units also started given concern for likely need of blood products. While first H&H relatively stable given situation, given patient's dehydration, concern that these were hemoconcentrated and patient's true H&H could be markedly lower. Given abnormal labs, repeat labs were drawn after 2 L of IV fluids were given. Patient's lactic acid did begin to improve from 10 to 6. No recurrent melena while in the emergency room. Patient's tachycardia slowly improved with IV fluid hydration as well. Patient also started on banana bag, Protonix drip, and once patient mentioned prior EGD and finding of varices, after discussion with the hospitalist patient was also started on an octreotide drip. Patient rechecked frequently given his critical status, and made aware of all results. After discussion with hospitalist, case also discussed with ICU [facility]. CT of the abdomen otherwise unremarkable. Patient transferred to the intensive care unit for additional evaluation and treatment under the care of the hospitalist and strategic account manager. They will discussed the case with GI for additional management also. Do not suspect other infectious etiology or sepsis. Patient covered with 1 dose of IV Rocephin initially and blood culture sent. Patient was made aware of all results and was in agreement with plan. Patient still tachycardic at time of transfer to the emergency department, although blood pressure stable. Impression & Plan GI bleed, Alcohol abuse, Tachycardia, Hypotension, Acute kidney injury, Hypomagnesemia, Hyponatremia, Anemia Critical Care Time I have personally spent greater than 60 minutes of critical care time in the direct management of this patient. This includes bedside care, interpretation of diagnostic studies, and testing, discussion with consultants, patient, and family members, and other required patient management activities. This 60 minutes is in excess of all separately billable procedures. Critical Care Time: Yes Total Critical Care Time: 60 Discharge Plan Visit Data *Final* Discharge Date/Time: 08/16/18 05:38 Chief Complaint: GI Assessment ED Provider: Eunice Hernandez Discharge Problem: GI bleed, Alcohol abuse, Tachycardia, Hypotension, Acute kidney injury, Hypomagnesemia, Hyponatremia, Anemia Patient Disposition: Admitted As Inpatient Discharge Instructions Interventions: ED Discharge Assessment Last Done: 08/16/18 05:38 Discharge Problem: GI bleed Qualifiers: GI bleed type/associated pathology: melena Qualified Code(s): K92.1 - Melena Hypotension Qualifiers: Hypotension type: other hypotension type Qualified Code(s): I95.89 - Other hypotension Anemia Qualifiers: Anemia type: other cause Other causes of anemia: acute posthemorrhagic Qualified Code(s): D62 - Acute posthemorrhagic anemia The scribe's documentation has been prepared under my direction and personally reviewed by me in its entirety. I confirm that the note above accurately reflects all work, treatment, procedures, and medical decision making performed by me.
[2018-08-17] MEDS: PROPRANOLOL HCL 10 MG TAB PO SCH ×4 (07:36→21:06)
[2018-08-17] MEDS: POT PHOSPHATE MONOBASIC W/ SOD TAB PO SCH ×4 (07:37→21:06)
[2018-08-17] MEDS: THIAMINE HCL 100 MG in SYRINGE 9 ML IV SCH (07:38)
[2018-08-17] MEDS: FOLIC ACID 1 MG in SYRINGE 9.8 ML IV SCH (07:39)
--- NOTE | 2018-08-17 07:47 | Critical Care Progress Note ---
Date of Service August 17, 2018 Supervising Physician Co-Signing Physician Notes NEURO - CAM ICU: NEGATIVE Alcohol abuse: Potential for withdrawal symptoms. CIWA protocol in place: Score 1. Ativan as needed. CARDIAC/VASCULAR - Tachycardia: Improved -Continue propranolol 10 mg 4 times daily GI/NUTRITION - Discontinue octreotide today Convert to twice daily Protonix dosage SBP coverage with Rocephin 1 mg daily. -Continue for 5 days of therapy RENAL/LYTES - Acute kidney injury: Improved IVF: Discontinue additional fluid ENDO - No history of diabetes or thyroid disease. BSGs per unit protocol. ISS --> gtt per unit policy. HEME - No evidence of ongoing blood loss Check H&H twice daily DVT prophylaxis: SCDs LINES/IV ACCESS - PIVs x3 DVT PROPHYLAXIS - Will hold on chemoprophylaxis secondary to upper GI bleed. SCDs Patient stable for downgrade out of ICU Subjective Overnight events Physical Exam Vital Signs (Past 24 Hours): Last Vital Signs Temp 36.8 C 08/17/18 04:00 Pulse 89 08/17/18 06:00 Resp 19 08/17/18 06:00 BP 119/81 08/17/18 06:00 Pulse Ox 95 08/17/18 06:00 General: Alert. nontoxic. Skin: Warm, dry, Head: Atraumatic Ears, nose, mouth and throat: airway patent Cardiovascular: Normal peripheral perfusion Respiratory: no respiratory distress Gastrointestinal: Non distended Musculoskeletal: No deformity
[2018-08-17] MEDS: NSS + 20MEQ KCL 20 MEQ/1,000 ML BAG IV SCH (09:21)
[2018-08-17 10:16] LABS: Basophils # (auto) 0.03 K/uL (0-0.2); Basophils % (auto) 0.3 %; Eosinophils # (auto) 0.06 K/uL (0-0.5); Eosinophils % (auto) 0.6 %; Hematocrit (blood only) 25.2 % (42-52); Hemoglobin 8.3 g/dL (14.0-18.0); Immature Granulocytes # (auto) 0.09 K/uL (0.00-0.02); Immature Granulocytes % (auto) 0.8 %; Lymphocytes % (auto) 15.8 %; Mean Corpuscular Hgb Conc 32.9 g/dL (32-36); Mean Corpuscular Volume 84.6 fL (80-100); Monocytes # (auto) 0.93 K/uL (0.11-0.59); Monocytes % (auto) 8.6 %; Neutrophils # (auto) 7.98 K/uL (1.4-6.5); Neutrophils % (auto) 73.9 %; Nucleated RBC # (auto) 0.05 K/uL (0-0); Nucleated RBC % (auto) 0.5 %; Platelet Count 170 K/uL (130-400); RDW Coefficient of Variation 15.8 % (11.5-14.5); RDW Standard Deviation 47.9 fL (36.4-46.3); Red Blood Count 2.98 M/uL (4.7-6.1); White Blood Count 10.79 K/uL (4.8-10.8)
[2018-08-17] MEDS: PANTOprazole 40 MG in SYRINGE 0 ML IV SCH ×2 (10:50→21:06)
--- NOTE | 2018-08-17 13:58 | Gastroenterology Progress Note ---
Date of Service August 17, 2018 Assessment & Plan (1) GI bleed: Patient is doing well. Labs show a lipase >3 times ULN so he may likely have mild ETOH pancreatitis. He is doing fine and tolerating a regular diet, however, at the present time. No abdominal pain, n/v. Would continue adequate hydration. Follow labs. On discharge he should continue a PPI twice daily. Consider repeat EGD, but patient states he does not have insurance at the present time. Once he does establish medical insurance, would recommend repeat evaluation with an EGD. (2) Alcohol abuse: Supervising Physician Co-Signing Physician Notes I have personally seen and examined the patient with Seema Fierro PA-C. Her note reflects my exam and findings. I agree with her impression and plan. Patient doing well today. He most likely had a bout of ETOH pancreatitis and gastritis. His hiccups have stopped and he is tolerating light diet with out increase in abdominal pain. Celso Alatorre M.D. Subjective Patient feeling better this morning. No further hiccups. Denies abdominal pain. Eating a regular diet. He did complain of some pain on swallowing initially, but this is improving. Yesterday he did have one dark BM. No BM yet today. Blood work shows a stable Hgb of 8.5 this morning and normal BUN. LFTs continue to be normal. Lipase is 1909. On pantoprazole BID. Constitutional: no fever, no chills, no fatigue and no weight loss Eyes: no eye pain and no worsening vision Ear, Nose, Mouth, Throat: no ear pain, no hearing loss, no nasal congestion and no sore throat Respiratory: no cough, no chest congestion and no wheezing Cardiovascular: no chest pain and no dyspnea Gastrointestinal: as per Subjective / HPI Musculoskeletal: no joint pain Integumentary: no rash and no pruritus Neurologic: no tingling, no numbness and no dizziness Psychiatric: no suicidal ideation and no confusion Endocrine: no cold intolerance and no heat intolerance Hematologic / Lymphatic: no easy bleeding and no easy bruising Allergy / Immunological: no problem reported Physical Exam Vital Signs (Past 24 Hours): Last Vital Signs Temp 37.7 C H 08/17/18 08:00 Pulse 93 H 08/17/18 08:00 Resp 16 08/17/18 08:00 BP 122/79 08/17/18 08:00 Pulse Ox 96 08/17/18 08:00 Constitutional: WD/WN, vitals as above no acute distress Eyes: + anicteric sclerae ENMT: external ear and nose normal, oropharynx normal Neck: normal visual inspection Respiratory: normal respiratory effort, lungs clear to auscultation Cardiovascular: Rate/Rhythm: regular rate and regular rhythm Heart Sounds: no murmur Gastrointestinal (Abdomen): normal bowel sounds, soft, nontender, no hepatosplenomegaly Musculoskeletal: Head/Neck/Chest: normocephalic and head atraumatic Skin: no rashes, warm and dry Neurologic: moves all extremities; no focal motor deficits Psychiatric: Orientation: alert and oriented x 3 Results & Data Laboratory Results Laboratory Results - last 24 hr 08/16/18 08/16/18 08/16/18 16:16 16:16 16:16 WBC RBC Hgb 9.0 L Hct 27.2 L MCV MCH MCHC RDW Std Deviation RDW Coeff of Aaron Plt Count MPV Immature Gran % (Auto) Neut % (Auto) Lymph % (Auto) [place] % (Auto) Eos % (Auto) Baso % (Auto) Immature Gran # (Auto) Neut # (Auto) Lymph # (Auto) [place] # (Auto) Eos # (Auto) Baso # (Auto) Absolute Nucleated RBC Nucleated RBC % (auto) Giant Platelets Polychromasia PT INR APTT PTT Ratio Sodium 128 L Potassium 3.9 Chloride 93 L Carbon Dioxide 29 Anion Gap 6.0 BUN 34 H Creatinine 1.49 H Est Cr Clr Drug Dosing 65.1 Est GFR ( Amer) 61.7 Est GFR (Non-Af Amer) 53.2 BUN/Creatinine Ratio 22.5 H Glucose 176 H Lactate 3.8 H* Calcium 7.4 L Phosphorus 1.0 L* Magnesium 2.2 Total Bilirubin Direct Bilirubin AST ALT Alkaline Phosphatase Total Protein Albumin Lipase 08/16/18 08/17/18 08/17/18 23:07 04:50 04:50 WBC 10.40 RBC 3.14 L Hgb 8.5 L 8.5 L Hct 25.8 L 26.2 L MCV 83.4 MCH 27.1 MCHC 32.4 RDW Std Deviation 46.3 RDW Coeff of Aaron 15.6 H Plt Count 172 MPV 10.6 H Immature Gran % (Auto) 0.5 Neut % (Auto) 76.1 Lymph % (Auto) 15.8 [place] % (Auto) 7.2 Eos % (Auto) 0.3 Baso % (Auto) 0.1 Immature Gran # (Auto) 0.05 H Neut # (Auto) 7.92 H Lymph # (Auto) 1.64 [place] # (Auto) 0.75 H Eos # (Auto) 0.03 Baso # (Auto) 0.01 Absolute Nucleated RBC 0.04 H Nucleated RBC % (auto) 0.4 Giant Platelets 1+ Polychromasia 1+ PT 10.8 INR 1.1 APTT 23.6 PTT Ratio 0.9 Sodium Potassium Chloride Carbon Dioxide Anion Gap BUN Creatinine Est Cr Clr Drug Dosing Est GFR ( Amer) Est GFR (Non-Af Amer) BUN/Creatinine Ratio Glucose Lactate Calcium Phosphorus Magnesium Total Bilirubin Direct Bilirubin AST ALT Alkaline Phosphatase Total Protein Albumin Lipase 08/17/18 08/17/18 04:50 10:09 WBC 10.79 RBC 2.98 L Hgb 8.3 L Hct 25.2 L MCV 84.6 MCH 27.9 MCHC 32.9 RDW Std Deviation 47.9 H RDW Coeff of Aaron 15.8 H Plt Count 170 MPV 10.0 Immature Gran % (Auto) 0.8 Neut % (Auto) 73.9 Lymph % (Auto) 15.8 [place] % (Auto) 8.6 Eos % (Auto) 0.6 Baso % (Auto) 0.3 Immature Gran # (Auto) 0.09 H Neut # (Auto) 7.98 H Lymph # (Auto) 1.70 [place] # (Auto) 0.93 H Eos # (Auto) 0.06 Baso # (Auto) 0.03 Absolute Nucleated RBC 0.05 H Nucleated RBC % (auto) 0.5 Giant Platelets Polychromasia PT INR APTT PTT Ratio Sodium 136 D Potassium 4.0 Chloride 105 Carbon Dioxide 27 Anion Gap 4.0 BUN 16 D Creatinine 0.99 D Est Cr Clr Drug Dosing 98.0 Est GFR ( Amer) 101.1 Est GFR (Non-Af Amer) 87.2 BUN/Creatinine Ratio 15.8 Glucose 116 H Lactate Calcium 7.3 L Phosphorus 1.3 L* Magnesium 2.3 Total Bilirubin 0.3 D Direct Bilirubin 0.1 AST 26 ALT 23 Alkaline Phosphatase 52 Total Protein 6.0 L Albumin 2.9 L Lipase 1909 H (1) GI bleed GI bleed type/associated pathology: melena Qualified Code(s): K92.1 - Melena
--- NOTE | 2018-08-17 14:25 | Hospitalist Progress Note ---
Date of Service August 17, 2018 Assessment & Plan (1) Upper GI bleed: (2) Anemia: (3) Hyponatremia: (4) Hypomagnesemia: (5) Acute kidney injury: (6) Tachycardia: (7) Alcohol abuse: (8) Lactic acidosis: (9) Hyperglycemia: 53-year-old male Admitted because of upper GI bleeding, has been on a 10- day alcohol binge Prior to the admission Upper GI bleed With history of alcohol abuse, binge drinking: Differential diagnosis include varices, gastritis, peptic ulcerative disease, Esophageal mucous tearing, Etc. GI input appreciated, continueProtonix drip, octreotide drip. H&H has been stable, currently hemoglobin 9.9 from 8.6 after transfusion Follow-up H&H GI on the case, cont PPI twice daily. Per GI, Consider repeat EGD, but patient states he does not have insurance at the present time. Once he does establish medical insurance, would recommend repeat evaluation with an EGD. recent EGD e at [facility] approximately 6 months ago, being told that he had varices. Alcohol abuse, fatty liver, Possible signs of alcohol withdrawal Subjective upon Admission, improving and resolving Continue with banana bag Alcohol withdrawal protocol Acute blood loss anemia likely from the above upper GI bleeding Acute kidney injury: Resolved Continue fluid rehydration and transfusions, and repeat laboratory serially. Possible sepsis at admission Which is supported by leukocytosis increased anion gap, and elevated lactase Has been on Rocephin IV antibiotic,Leukocytosis improving,Lactase trends down Continue Empiric antibiotic and follow-up culture results Discussed with intenvist, continue IV Rocephin for for 5 days more because of possible varices infection and cause bleeding Tachycardia, Elevated blood pressure, likely from alcohol withdrawal , resolved Alcohol abuse: Continue on the AWSS protocol. Transfer to PCU, PT OT, continue supportive care GI DVT px Subjective Out of bed and up and walk, no dizziness Tolerate clear liquid diet and is advancing Denies tremor denies hallucination Denies emesis or vomiting blood, Denies anxiety depression, Review of Systems Positive weakness, or fatigue, however is been getting better no cough, sputum, wheezing, No chest pain, No orthopnea, Abdomen: No pain, No nausea, No vomiting, No diarrhea, No dysuria, No urinary frequency, No incontinence, No hematuria No paralysis, No weakness, No numbness/tingling, No vertigo, ight sweats Skin: No rash, No itch, No new/changing skin lesions, No color change, No bleeding Physical Exam Vital Signs (Past 24 Hours): Last Vital Signs Temp 37.7 C H 08/17/18 08:00 Pulse 93 H 08/17/18 08:00 Resp 16 08/17/18 08:00 BP 122/79 08/17/18 08:00 Pulse Ox 96 08/17/18 08:00 Physical Exam: Pleasant, conversational, no acute distress. HEENT--PERRL, EOMI, mucous membranes and oropharynx moist Neck--supple. No JVD. No bruits. Thyroid normal, trachea midline, no adenopathy. Heart--tachycardic, regular rhythm, no murmurs, rubs or gallops. Lungs--clear bilaterally, no respiratory distress, no accessory muscle use. Abdomen--normal bowel sounds and soft. Nontender. Nondistended. Extremities--no cyanosis or clubbing. No edema. skin: normal color, no abnormal lymph nodes, no rash. Neurologic--cranial nerves II through XII grossly intact. Awake alert orientated, x3 , normal affect. Results & Data Laboratory Results Laboratory Results - last 24 hr 08/16/18 08/16/18 08/16/18 16:16 16:16 16:16 WBC RBC Hgb 9.0 L Hct 27.2 L MCV MCH MCHC RDW Std Deviation RDW Coeff of Aaron Plt Count MPV Immature Gran % (Auto) Neut % (Auto) Lymph % (Auto) [place]mer[place]da % (Auto) Eos % (Auto) Baso % (Auto) Immature Gran # (Auto) Neut # (Auto) Lymph # (Auto) [place] # (Auto) Eos # (Auto) Baso # (Auto) Absolute Nucleated RBC Nucleated RBC % (auto) Giant Platelets Polychromasia PT INR APTT PTT Ratio Sodium 128 L Potassium 3.9 Chloride 93 L Carbon Dioxide 29 Anion Gap 6.0 BUN 34 H Creatinine 1.49 H Est Cr Clr Drug Dosing 65.1 Est GFR ( Amer) 61.7 Est GFR (Non-Af Amer) 53.2 BUN/Creatinine Ratio 22.5 H Glucose 176 H Lactate 3.8 H* Calcium 7.4 L Phosphorus 1.0 L* Magnesium 2.2 Total Bilirubin Direct Bilirubin AST ALT Alkaline Phosphatase Total Protein Albumin Lipase 03/11/19 03/12/19 03/12/19 23:07 04:50 04:50 WBC 10.40 RBC 3.14 L Hgb 8.5 L 8.5 L Hct 25.8 L 26.2 L MCV 83.4 MCH 27.1 MCHC 32.4 RDW Std Deviation 46.3 RDW Coeff of Aaron 15.6 H Plt Count 172 MPV 10.6 H Immature Gran % (Auto) 0.5 Neut % (Auto) 76.1 Lymph % (Auto) 15.8 [place]mer[place]da % (Auto) 7.2 Eos % (Auto) 0.3 Baso % (Auto) 0.1 Immature Gran # (Auto) 0.05 H Neut # (Auto) 7.92 H Lymph # (Auto) 1.64 [place]mer[place]da # (Auto) 0.75 H Eos # (Auto) 0.03 Baso # (Auto) 0.01 Absolute Nucleated RBC 0.04 H Nucleated RBC % (auto) 0.4 Giant Platelets 1+ Polychromasia 1+ PT 10.8 INR 1.1 APTT 23.6 PTT Ratio 0.9 Sodium Potassium Chloride Carbon Dioxide Anion Gap BUN Creatinine Est Cr Clr Drug Dosing Est GFR ( Amer) Est GFR (Non-Af Amer) BUN/Creatinine Ratio Glucose Lactate Calcium Phosphorus Magnesium Total Bilirubin Direct Bilirubin AST ALT Alkaline Phosphatase Total Protein Albumin Lipase 08/17/18 08/17/18 04:50 10:09 WBC 10.79 RBC 2.98 L Hgb 8.3 L Hct 25.2 L MCV 84.6 MCH 27.9 MCHC 32.9 RDW Std Deviation 47.9 H RDW Coeff of Aaron 15.8 H Plt Count 170 MPV 10.0 Immature Gran % (Auto) 0.8 Neut % (Auto) 73.9 Lymph % (Auto) 15.8 [place]mer[place]da % (Auto) 8.6 Eos % (Auto) 0.6 Baso % (Auto) 0.3 Immature Gran # (Auto) 0.09 H Neut # (Auto) 7.98 H Lymph # (Auto) 1.70 [place]mer[place]da # (Auto) 0.93 H Eos # (Auto) 0.06 Baso # (Auto) 0.03 Absolute Nucleated RBC 0.05 H Nucleated RBC % (auto) 0.5 Giant Platelets Polychromasia PT INR APTT PTT Ratio Sodium 136 D Potassium 4.0 Chloride 105 Carbon Dioxide 27 Anion Gap 4.0 BUN 16 D Creatinine 0.99 D Est Cr Clr Drug Dosing 98.0 Est GFR ( Amer) 101.1 Est GFR (Non-Af Amer) 87.2 BUN/Creatinine Ratio 15.8 Glucose 116 H Lactate Calcium 7.3 L Phosphorus 1.3 L* Magnesium 2.3 Total Bilirubin 0.3 D Direct Bilirubin 0.1 AST 26 ALT 23 Alkaline Phosphatase 52 Total Protein 6.0 L Albumin 2.9 L Lipase 1909 H (1) Anemia Anemia type: other cause Other causes of anemia: acute posthemorrhagic Qualified Code(s): D62 - Acute posthemorrhagic anemia
[2018-08-17] MEDS: MAGNESIUM OXIDE 400 MG TAB PO SCH (21:06)
[2018-08-17 22:13] LABS: Basophils # (auto) 0.07 K/uL (0-0.2); Basophils % (auto) 0.7 %; Eosinophils # (auto) 0.12 K/uL (0-0.5); Eosinophils % (auto) 1.1 %; Hematocrit (blood only) 25.9 % (42-52); Hemoglobin 8.1 g/dL (14.0-18.0); Immature Granulocytes # (auto) 0.16 K/uL (0.00-0.02); Immature Granulocytes % (auto) 1.5 %; Lymphocytes # (auto) 2.19 K/uL (1.2-3.4); Lymphocytes % (auto) 20.8 %; Mean Corpuscular Hgb Conc 31.3 g/dL (32-36); Mean Corpuscular Volume 85.5 fL (80-100); Mean Platelet Volume 10.1 fL (7.4-10.4); Monocytes # (auto) 0.87 K/uL (0.11-0.59); Monocytes % (auto) 8.3 %; Neutrophils # (auto) 7.13 K/uL (1.4-6.5); Neutrophils % (auto) 67.6 %; Nucleated RBC # (auto) 0.25 K/uL (0-0); Nucleated RBC % (auto) 2.3 %; Platelet Count 187 K/uL (130-400); RDW Coefficient of Variation 15.8 % (11.5-14.5); Red Blood Count 3.03 M/uL (4.7-6.1); White Blood Count 10.54 K/uL (4.8-10.8)
[2018-08-17 22:48] LABS: Polychromasia 1+
[2018-08-18] MEDS: cefTRIAXone SODIUM 1,000 MG in DEXTROSE 5% 50 ML IV SCH (03:44)
[2018-08-18 05:59] LABS: Basophils # (auto) 0.05 K/uL (0-0.2); Basophils % (auto) 0.5 %; Eosinophils # (auto) 0.17 K/uL (0-0.5); Eosinophils % (auto) 1.9 %; Hematocrit (blood only) 27.4 % (42-52); Hemoglobin 8.7 g/dL (14.0-18.0); Immature Granulocytes # (auto) 0.24 K/uL (0.00-0.02); Immature Granulocytes % (auto) 2.6 %; Lymphocytes # (auto) 2.07 K/uL (1.2-3.4); Lymphocytes % (auto) 22.7 %; Mean Corpuscular Hgb Conc 31.8 g/dL (32-36); Mean Corpuscular Volume 85.9 fL (80-100); Mean Platelet Volume 10.9 fL (7.4-10.4); Monocytes # (auto) 0.77 K/uL (0.11-0.59); Monocytes % (auto) 8.4 %; Neutrophils # (auto) 5.82 K/uL (1.4-6.5); Neutrophils % (auto) 63.9 %; Nucleated RBC # (auto) 0.22 K/uL (0-0); Nucleated RBC % (auto) 2.4 %; Platelet Count 209 K/uL (130-400); RDW Coefficient of Variation 16.2 % (11.5-14.5); Red Blood Count 3.19 M/uL (4.7-6.1); White Blood Count 9.12 K/uL (4.8-10.8)
[2018-08-18 06:10] LABS: Partial Thromboplastin Ratio 0.8; Partial Thromboplastin Time 22.4 Seconds (21.0-31.0); Prothrombin Time 10.2 Seconds (9.0-12.0)
[2018-08-18 06:31] LABS: Alanine Aminotransferase 22 U/L (12-78); Albumin Level 2.8 gm/dl (3.4-5.0); Aspartate Aminotransferase 20 U/L (15-37); BUN Creatinine Ratio 12.1 (10-20); Blood Urea Nitrogen 11 mg/dl (7-18); Calcium 7.6 mg/dl (8.5-10.1); Carbon Dioxide 25 mmol/L (21-32); Chloride 106 mmol/L (98-107); Creatinine Clr Calc Pharmacy 105.3 ml/min; Est GFR (African American) 110.4; Est GFR (Non-African American) 95.3; Glucose 105 mg/dl (70-99); Magnesium 1.9 mg/dl (1.8-2.4); Potassium 3.7 mmol/L (3.5-5.1); Sodium 137 mmol/L (136-145)
[2018-08-18 06:41] LABS: Alkaline Phosphatase 51 U/L (45-117); Bilirubin Direct < 0.1 mg/dl (0-0.2); Bilirubin,Total 0.2 mg/dl (0.2-1); Phosphorus 2.9 mg/dl (2.5-4.9)
[2018-08-18 06:53] LABS: Anisocytosis Present; Polychromasia 1+
[2018-08-18] MEDS: PROPRANOLOL HCL 10 MG TAB PO SCH ×4 (07:42→20:56)
[2018-08-18] MEDS: PANTOprazole 40 MG in SYRINGE 0 ML IV SCH (07:42)
[2018-08-18] MEDS: POT PHOSPHATE MONOBASIC W/ SOD TAB PO SCH ×4 (07:42→20:56)
[2018-08-18] MEDS: THIAMINE HCL 100 MG in SYRINGE 9 ML IV SCH (07:42)
[2018-08-18] MEDS: FOLIC ACID 1 MG in SYRINGE 9.8 ML IV SCH (07:42)
--- NOTE | 2018-08-18 12:00 | Gastroenterology Progress Note ---
Date of Service August 18, 2018 Assessment & Plan (1) GI bleed: Pt is a 53 y/o male, admitted for likely ETOH pancreatitis, also reported coffee ground emesis & dark stools prior to admission. He is anemic on presentation, received 1U PRBC tranfusion on 08/16 and Hgb been stable w/o overt signs of GI bleeding. ? hx of varices found on EGD in [place] 6 months ago per pt's report. He did have record of EGD on 11/2017 in our system which showed LA grade D esophagitis but no mention of varices, normal stomach. CT abd/pelvis w/o contrast here showed severe hepatic steatosis. He admits to be a drinker, months sober but recently started binge drinking again. - Continue Protonix 40mg BID. - Monitor H/H and transfuse prn - He is advised to abstain from ETOH - No new GI plans, will sign off. He needs close f/u once DC'd. 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 I will ask our schedulers to contact him for f/u for his hepatic steatosis ? cirrhosis and possible EGD as outpt workup once he's DC'd home. (2) Alcohol abuse: Supervising Physician Co-Signing Physician Notes I have personally seen and examined the patient with CRYSTAL Elliott. Her note reflects my exam and findings. I agree with her impression and plan. Tolerating diet. Stable for D/C from GI perspective. ETOH avoidance. Celso Alatorre M.D. Subjective Pt reports BM this AM, formed, not black anymore. Denies any abd pain, n/v, tolerating solid meals. H/H stable. Physical Exam Vital Signs (Past 24 Hours): Last Vital Signs Temp 37.2 C 08/18/18 08:01 Pulse 101 H 08/18/18 08:01 Resp 18 08/18/18 08:01 BP 140/78 08/18/18 08:01 Pulse Ox 99 08/18/18 08:01 Constitutional: WD/WN, vitals as above well groomed, cooperative and comfortable Eyes: PERRL, conjunctivae normal, anicteric sclerae ENMT: external ear and nose normal, oropharynx normal Respiratory: normal respiratory effort, lungs clear to auscultation Cardiovascular: RRR, no murmur, no edema Gastrointestinal (Abdomen): normal bowel sounds, soft, nontender, no hepatosplenomegaly Skin: no rashes, warm and dry no jaundice Neurologic: Motor/Sensory: no asterixis Psychiatric: A+Ox3, euthymic affect Lymphatic: no lymphedema Results & Data Laboratory Results Laboratory Results - last 48 hr 08/16/18 08/16/18 08/16/18 10:21 16:16 16:16 WBC RBC Hgb 9.0 L Hct 27.2 L MCV MCH MCHC RDW Std Deviation RDW Coeff of Aaron Plt Count MPV Immature Gran % (Auto) Neut % (Auto) Lymph % (Auto) [place] % (Auto) Eos % (Auto) Baso % (Auto) Immature Gran # (Auto) Neut # (Auto) Lymph # (Auto) [place] # (Auto) Eos # (Auto) Baso # (Auto) Absolute Nucleated RBC Nucleated RBC % (auto) Giant Platelets Polychromasia Anisocytosis PT INR APTT PTT Ratio Sodium Potassium Chloride Carbon Dioxide Anion Gap BUN Creatinine Est Cr Clr Drug Dosing Est GFR ( Amer) Est GFR (Non-Af Amer) BUN/Creatinine Ratio Glucose Lactate 3.8 H* Calcium Phosphorus Magnesium Total Bilirubin 1.0 Direct Bilirubin 0.2 AST 28 ALT 24 Alkaline Phosphatase 66 Total Protein 6.4 Albumin 3.3 L Lipase 08/16/18 08/16/18 08/17/18 16:16 23:07 04:50 WBC 10.40 RBC 3.14 L Hgb 8.5 L 8.5 L Hct 25.8 L 26.2 L MCV 83.4 MCH 27.1 MCHC 32.4 RDW Std Deviation 46.3 RDW Coeff of Aaron 15.6 H Plt Count 172 MPV 10.6 H Immature Gran % (Auto) 0.5 Neut % (Auto) 76.1 Lymph % (Auto) 15.8 [place] % (Auto) 7.2 Eos % (Auto) 0.3 Baso % (Auto) 0.1 Immature Gran # (Auto) 0.05 H Neut # (Auto) 7.92 H Lymph # (Auto) 1.64 [place] # (Auto) 0.75 H Eos # (Auto) 0.03 Baso # (Auto) 0.01 Absolute Nucleated RBC 0.04 H Nucleated RBC % (auto) 0.4 Giant Platelets 1+ Polychromasia 1+ Anisocytosis PT INR APTT PTT Ratio Sodium 128 L Potassium 3.9 Chloride 93 L Carbon Dioxide 29 Anion Gap 6.0 BUN 34 H Creatinine 1.49 H Est Cr Clr Drug Dosing 65.1 Est GFR ( Amer) 61.7 Est GFR (Non-Af Amer) 53.2 BUN/Creatinine Ratio 22.5 H Glucose 176 H Lactate Calcium 7.4 L Phosphorus 1.0 L* Magnesium 2.2 Total Bilirubin Direct Bilirubin AST ALT Alkaline Phosphatase Total Protein Albumin Lipase 08/17/18 08/17/18 08/17/18 04:50 04:50 10:09 WBC 10.79 RBC 2.98 L Hgb 8.3 L Hct 25.2 L MCV 84.6 MCH 27.9 MCHC 32.9 RDW Std Deviation 47.9 H RDW Coeff of Aaron 15.8 H Plt Count 170 MPV 10.0 Immature Gran % (Auto) 0.8 Neut % (Auto) 73.9 Lymph % (Auto) 15.8 [place] % (Auto) 8.6 Eos % (Auto) 0.6 Baso % (Auto) 0.3 Immature Gran # (Auto) 0.09 H Neut # (Auto) 7.98 H Lymph # (Auto) 1.70 [place] # (Auto) 0.93 H Eos # (Auto) 0.06 Baso # (Auto) 0.03 Absolute Nucleated RBC 0.05 H Nucleated RBC % (auto) 0.5 Giant Platelets Polychromasia Anisocytosis PT 10.8 INR 1.1 APTT 23.6 PTT Ratio 0.9 Sodium 136 D Potassium 4.0 Chloride 105 Carbon Dioxide 27 Anion Gap 4.0 BUN 16 D Creatinine 0.99 D Est Cr Clr Drug Dosing 98.0 Est GFR ( Amer) 101.1 Est GFR (Non-Af Amer) 87.2 BUN/Creatinine Ratio 15.8 Glucose 116 H Lactate Calcium 7.3 L Phosphorus 1.3 L* Magnesium 2.3 Total Bilirubin 0.3 D Direct Bilirubin 0.1 AST 26 ALT 23 Alkaline Phosphatase 52 Total Protein 6.0 L Albumin 2.9 L Lipase 1909 H 08/17/18 08/18/18 08/18/18 22:02 05:15 05:15 WBC 10.54 9.12 RBC 3.03 L 3.19 L Hgb 8.1 L 8.7 L Hct 25.9 L 27.4 L MCV 85.5 85.9 MCH 26.7 27.3 MCHC 31.3 L 31.8 L RDW Std Deviation 48.0 H 49.0 H RDW Coeff of Aaron 15.8 H 16.2 H Plt Count 187 209 MPV 10.1 10.9 H Immature Gran % (Auto) 1.5 2.6 Neut % (Auto) 67.6 63.9 Lymph % (Auto) 20.8 22.7 [place] % (Auto) 8.3 8.4 Eos % (Auto) 1.1 1.9 Baso % (Auto) 0.7 0.5 Immature Gran # (Auto) 0.16 H 0.24 H Neut # (Auto) 7.13 H 5.82 Lymph # (Auto) 2.19 2.07 [place] # (Auto) 0.87 H 0.77 H Eos # (Auto) 0.12 0.17 Baso # (Auto) 0.07 0.05 Absolute Nucleated RBC 0.25 H 0.22 H Nucleated RBC % (auto) 2.3 2.4 Giant Platelets Polychromasia 1+ 1+ Anisocytosis Present PT 10.2 INR 1.0 APTT 22.4 PTT Ratio 0.8 Sodium Potassium Chloride Carbon Dioxide Anion Gap BUN Creatinine Est Cr Clr Drug Dosing Est GFR ( Amer) Est GFR (Non-Af Amer) BUN/Creatinine Ratio Glucose Lactate Calcium Phosphorus Magnesium Total Bilirubin Direct Bilirubin AST ALT Alkaline Phosphatase Total Protein Albumin Lipase 08/18/18 05:15 WBC RBC Hgb Hct MCV MCH MCHC RDW Std Deviation RDW Coeff of Aaron Plt Count MPV Immature Gran % (Auto) Neut % (Auto) Lymph % (Auto) [place] % (Auto) Eos % (Auto) Baso % (Auto) Immature Gran # (Auto) Neut # (Auto) Lymph # (Auto) [place] # (Auto) Eos # (Auto) Baso # (Auto) Absolute Nucleated RBC Nucleated RBC % (auto) Giant Platelets Polychromasia Anisocytosis PT INR APTT PTT Ratio Sodium 137 Potassium 3.7 Chloride 106 Carbon Dioxide 25 Anion Gap 6.0 BUN 11 Creatinine 0.92 Est Cr Clr Drug Dosing 105.3 Est GFR ( Amer) 110.4 Est GFR (Non-Af Amer) 95.3 BUN/Creatinine Ratio 12.1 Glucose 105 H Lactate Calcium 7.6 L Phosphorus 2.9 D Magnesium 1.9 Total Bilirubin 0.2 Direct Bilirubin < 0.1 AST 20 ALT 22 Alkaline Phosphatase 51 Total Protein 6.0 L Albumin 2.8 L Lipase 376 (1) GI bleed GI bleed type/associated pathology: melena Qualified Code(s): K92.1 - Melena
--- NOTE | 2018-08-18 16:24 | Hospitalist Progress Note ---
Date of Service August 18, 2018 Assessment & Plan (1) Upper GI bleed: (2) Anemia: (3) Hyponatremia: (4) Hypomagnesemia: (5) Acute kidney injury: (6) Tachycardia: (7) Alcohol abuse: (8) Lactic acidosis: (9) Hyperglycemia: 53-year-old male Admitted because of upper GI bleeding, has been on a 10- day alcohol binge Prior to the admission Upper GI bleed With history of alcohol abuse, binge drinking: Differential diagnosis include varices, gastritis, peptic ulcerative disease, Esophageal mucous tearing, Etc. GI input appreciated,was on Protonix drip, octreotide drip. Drip was stopped, continue Protonix 40 mg p.o. twice daily H&H has been stable, currently hemoglobin 9.9 from 8.6 after transfusion Chronic anemia, possibly baseline, anemia could be multiple factors such as alcohol intake, GI on the case, cont PPI twice daily. Per GI, Consider repeat EGD, but patient states he does not have insurance at the present time. Once he does establish medical insurance, would recommend repeat evaluation with an EGD. recent EGD e at [facility] approximately 6 months ago, being told that he had varices. Alcohol abuse, fatty liver, Possible signs of alcohol withdrawal upon Admission, resolved Alcohol withdrawal protocol, continue folic acid, thiamine, and multiple vitamin p.o. now. Continue upon discharge Acute blood loss anemia likely from the above upper GI bleeding, required 2 unit blood transfusion, has been stable Acute kidney injury: Resolved Discontinue IV fluid advance diet, Possible sepsis at admission Which is supported by leukocytosis increased anion gap, and elevated lactase Has been on Rocephin IV antibiotic,Leukocytosis improving,Lactase trends down Continue Empiric antibiotic and follow-up culture results Discussed with intenvist, continue IV Rocephin for 5 days more because of possible varices infection which have caused bleeding, possible discharge home with oral Augmentin if discharged home tomorrow Alcohol abuse: Continue on the AWSS protocol. Consult critical alcohol, offered inpatient and outpatient rehab, he declined likely acute pancreatitis with abdominal pain, resolved MedSurg and possible discharge home tomorrow GI DVT px Subjective Continue to be fair, Tolerate clear liquid diet and is advancing Review of Systems Positive weakness, or fatigue, however is been getting better no cough, sputum, wheezing, No chest pain, No orthopnea, Abdomen: No pain, No nausea, No vomiting, No diarrhea, No dysuria, No urinary frequency, No incontinence, No hematuria No paralysis, No weakness, No numbness/tingling, No vertigo, ight sweats Skin: No rash, No itch, No new/changing skin lesions, No color change, No bleeding Physical Exam Vital Signs (Past 24 Hours): Last Vital Signs Temp 37.1 C 08/18/18 12:22 Pulse 106 H 08/18/18 12:22 Resp 18 08/18/18 12:22 BP 117/80 08/18/18 12:22 Pulse Ox 99 08/18/18 12:22 Physical Exam: Pleasant, conversational, no acute distress, generally looks better HEENT--PERRL, EOMI, mucous membranes and oropharynx moist Neck--supple. No JVD. No bruits. Thyroid normal, trachea midline, no adenopathy. Heart--, regular rhythm, no murmurs, rubs or gallops. Lungs--clear bilaterally, no respiratory distress, no accessory muscle use. Abdomen--normal bowel sounds and soft. Nontender. Nondistended. Extremities--no cyanosis or clubbing. No edema. skin: normal color, no abnormal lymph nodes, no rash. Neurologic--cranial nerves II through XII grossly intact. Awake alert orientated, x3 , normal affect. Results & Data Laboratory Results Laboratory Results - last 24 hr 08/17/18 08/18/18 08/18/18 22:02 05:15 05:15 WBC 10.54 9.12 RBC 3.03 L 3.19 L Hgb 8.1 L 8.7 L Hct 25.9 L 27.4 L MCV 85.5 85.9 MCH 26.7 27.3 MCHC 31.3 L 31.8 L RDW Std Deviation 48.0 H 49.0 H RDW Coeff of Aaron 15.8 H 16.2 H Plt Count 187 209 MPV 10.1 10.9 H Immature Gran % (Auto) 1.5 2.6 Neut % (Auto) 67.6 63.9 Lymph % (Auto) 20.8 22.7 [place] % (Auto) 8.3 8.4 Eos % (Auto) 1.1 1.9 Baso % (Auto) 0.7 0.5 Immature Gran # (Auto) 0.16 H 0.24 H Neut # (Auto) 7.13 H 5.82 Lymph # (Auto) 2.19 2.07 [place] # (Auto) 0.87 H 0.77 H Eos # (Auto) 0.12 0.17 Baso # (Auto) 0.07 0.05 Absolute Nucleated RBC 0.25 H 0.22 H Nucleated RBC % (auto) 2.3 2.4 Polychromasia 1+ 1+ Anisocytosis Present PT 10.2 INR 1.0 APTT 22.4 PTT Ratio 0.8 Sodium Potassium Chloride Carbon Dioxide Anion Gap BUN Creatinine Est Cr Clr Drug Dosing Est GFR ( Amer) Est GFR (Non-Af Amer) BUN/Creatinine Ratio Glucose Calcium Phosphorus Magnesium Total Bilirubin Direct Bilirubin AST ALT Alkaline Phosphatase Total Protein Albumin Lipase 08/18/18 05:15 WBC RBC Hgb Hct MCV MCH MCHC RDW Std Deviation RDW Coeff of Aaron Plt Count MPV Immature Gran % (Auto) Neut % (Auto) Lymph % (Auto) [place] % (Auto) Eos % (Auto) Baso % (Auto) Immature Gran # (Auto) Neut # (Auto) Lymph # (Auto) [place] # (Auto) Eos # (Auto) Baso # (Auto) Absolute Nucleated RBC Nucleated RBC % (auto) Polychromasia Anisocytosis PT INR APTT PTT Ratio Sodium 137 Potassium 3.7 Chloride 106 Carbon Dioxide 25 Anion Gap 6.0 BUN 11 Creatinine 0.92 Est Cr Clr Drug Dosing 105.3 Est GFR ( Amer) 110.4 Est GFR (Non-Af Amer) 95.3 BUN/Creatinine Ratio 12.1 Glucose 105 H Calcium 7.6 L Phosphorus 2.9 D Magnesium 1.9 Total Bilirubin 0.2 Direct Bilirubin < 0.1 AST 20 ALT 22 Alkaline Phosphatase 51 Total Protein 6.0 L Albumin 2.8 L Lipase 376 (1) Anemia Anemia type: other cause Other causes of anemia: acute posthemorrhagic Qualified Code(s): D62 - Acute posthemorrhagic anemia
[2018-08-18] MEDS: PANTOprazole 40 MG TAB PO SCH (20:55)
[2018-08-18] MEDS: MAGNESIUM OXIDE 400 MG TAB PO SCH (20:56)
[2018-08-19] MEDS: ACETAMINOPHEN SOL 650 MG/20.3 ML UDC PO PRN (03:33)
[2018-08-19] MEDS: cefTRIAXone SODIUM 1,000 MG in DEXTROSE 5% 50 ML IV SCH (05:18)
[2018-08-19 06:24] LABS: Basophils # (auto) 0.02 K/uL (0-0.2); Basophils % (auto) 0.3 %; Eosinophils # (auto) 0.16 K/uL (0-0.5); Eosinophils % (auto) 2.4 %; Hematocrit (blood only) 25.8 % (42-52); Hemoglobin 8.2 g/dL (14.0-18.0); Immature Granulocytes # (auto) 0.12 K/uL (0.00-0.02); Immature Granulocytes % (auto) 1.8 %; Lymphocytes % (auto) 23.6 %; Mean Corpuscular Hgb Conc 31.8 g/dL (32-36); Mean Corpuscular Volume 85.4 fL (80-100); Mean Platelet Volume 10.1 fL (7.4-10.4); Monocytes # (auto) 0.64 K/uL (0.11-0.59); Monocytes % (auto) 9.4 %; Neutrophils # (auto) 4.24 K/uL (1.4-6.5); Neutrophils % (auto) 62.5 %; Nucleated RBC # (auto) 0.09 K/uL (0-0); Nucleated RBC % (auto) 1.4 %; Platelet Count 193 K/uL (130-400); RDW Coefficient of Variation 17.4 % (11.5-14.5); RDW Standard Deviation 50.6 fL (36.4-46.3); Red Blood Count 3.02 M/uL (4.7-6.1); White Blood Count 6.78 K/uL (4.8-10.8)
[2018-08-19 06:33] LABS: Partial Thromboplastin Ratio 0.8; Partial Thromboplastin Time 21.6 Seconds (21.0-31.0); Prothrombin Time 10.3 Seconds (9.0-12.0)
[2018-08-19 06:53] LABS: Albumin Level 2.8 gm/dl (3.4-5.0); BUN Creatinine Ratio 13.9 (10-20); Blood Urea Nitrogen 12 mg/dl (7-18); Calcium 7.8 mg/dl (8.5-10.1); Carbon Dioxide 24 mmol/L (21-32); Chloride 108 mmol/L (98-107); Creatinine Clr Calc Pharmacy 116.7 ml/min; Est GFR (African American) 117.3; Est GFR (Non-African American) 101.2; Glucose 107 mg/dl (70-99); Magnesium 1.7 mg/dl (1.8-2.4); Potassium 3.6 mmol/L (3.5-5.1); Sodium 139 mmol/L (136-145)
[2018-08-19 06:55] LABS: Polychromasia 1+
[2018-08-19 06:57] LABS: Alanine Aminotransferase 30 U/L (12-78); Albumin Globulin Ratio 0.9 (0.9-2); Alkaline Phosphatase 46 U/L (45-117); Aspartate Aminotransferase 22 U/L (15-37); Bilirubin Direct < 0.1 mg/dl (0-0.2); Bilirubin,Total 0.2 mg/dl (0.2-1); Globulin 3.1 gm/dl (2.5-4.0); Phosphorus 3.4 mg/dl (2.5-4.9); Total Protein 5.9 gm/dl (6.4-8.2)
[2018-08-19] MEDS: POT PHOSPHATE MONOBASIC W/ SOD TAB PO SCH ×2 (07:54→12:16)
[2018-08-19] MEDS: PROPRANOLOL HCL 10 MG TAB PO SCH ×2 (07:55→12:16)
[2018-08-19] MEDS: PANTOprazole 40 MG TAB PO SCH (08:27)
[2018-08-19] MEDS ORDERED: THIAMINE HCL 100 MG TAB PO SCH (09:00)
[2018-08-19] MEDS ORDERED: FOLIC ACID 1 MG TAB PO SCH (09:00)
[2018-08-19] MEDS ORDERED: MAGNESIUM SULFATE / D5W 1 GM/100 ML BAG IV ONE (09:00)
--- NOTE | 2018-08-19 17:49 | Discharge Summary ---
Date of Service August 19, 2018 Admission HPI Per Admitting Provider The patient is a 53-year-old male, who reports that he has been on a 10-day alcohol binge, with his last drink about 24 hours ago, who began to have dark stools and vomit up dark material 2 days ago. He does report feeling lightheaded and dizzy, but has not passed out. He does report having had an EGD done about 6 months ago in [facility], and does remember being told about having varices. He has not had an episode of bleeding like this in the past. His only medication that he takes his omeprazole 20 mg daily. He reports when he tried to stand yesterday he was so weak he almost fell over. He is aware of his heart beating faster, he does have epigastric area pain, and he has had the hiccups for a while. Principal Diagnosis no Discharge Data Allergies Allergy/AdvReac Type Severity Reaction Status Date / Time No Known Allergies Allergy Verified 08/16/18 02:55 Consultations 08/16/18 05:34 ED Decision to Admit Stat 08/16/18 06:07 Consult Case Management - Discharge Planning Routine Consult Cosmetics Presser Routine 08/16/18 06:44 Consult Gastroenterology Routine Ordered Studies 08/16/18 04:10 CT abd pelvis wo con Urgent 08/16/18 06:33 US duplex portal hepatic veins Urgent Hospital Course (1) Upper GI bleed: (2) Anemia: (3) Hyponatremia: Recheck electrolytes later on morning after placement. (4) Hypomagnesemia: (5) Acute kidney injury: (6) Tachycardia: (7) Alcohol abuse: (8) Lactic acidosis: (9) Hyperglycemia: 53-year-old male Admitted because of upper GI bleeding, has been on a 10- day alcohol binge Prior to the admission Upper GI bleed With history of alcohol abuse, binge drinking: resolved GI input appreciated, HB 8.2 from 8.7 today, was on Protonix drip, octreotide drip. Drip was stopped, continue Protonix 40 mg p.o. twice daily H&H has been stable, currently hemoglobin 9.9 from 8.6 after transfusion Chronic anemia, possibly baseline, anemia could be multiple factors such as alcohol intake, cont PPI twice daily. Per GI, Consider repeat EGD, but patient states he does not have insurance at the present time. Once he does establish medical insurance, would recommend repeat evaluation with an EGD. recent EGD e at [facility] approximately 6 months ago, being told that he had varices. Alcohol abuse, fatty liver, Possible signs of alcohol withdrawal upon Admission, resolved Alcohol withdrawal protocol, continue folic acid, thiamine, and multiple vitamin p.o. now. Continue upon discharge Acute blood loss anemia likely from the above upper GI bleeding, required 2 unit blood transfusion, has been relative stable Acute kidney injury: Resolved Possible sepsis at admission Which is supported by leukocytosis increased anion gap, and elevated lactase Has been on Rocephin IV antibiotic,Leukocytosis improving,Lactase trends down Continue Empiric antibiotic and follow-up culture results Discussed with intenvist, continue IV Rocephin for 5 days more because of possible varices infection which have caused bleeding, will discharge home with oral Augmentin 3 days more Alcohol abuse: Continue on the AWSS protocol. Consult critical alcohol, offered inpatient and outpatient rehab, he declined likely acute pancreatitis with abdominal pain, resolved MedSurg and possible discharge home tomorrow GI DVT px Subjective at discharge: Continue to be fair, up and walk, tolerate diet, no dizziness, no chest pain palpitation Review of Systems at discharge Positive weakness, or fatigue, however is been getting better no cough, sputum, wheezing, No chest pain, No orthopnea, Abdomen: No pain, No nausea, No vomiting, No diarrhea, No dysuria, No urinary frequency, No incontinence, No hematuria No paralysis, No weakness, No numbness/tingling, No vertigo, ight sweats Skin: No rash, No itch, No new/changing skin lesions, No color change, No bleeding Physical Exam at discharge Pleasant, conversational, no acute distress, generally looks better HEENT--PERRL, EOMI, mucous membranes and oropharynx moist Neck--supple. No JVD. No bruits. Thyroid normal, trachea midline, no adenopathy. Heart--, regular rhythm, no murmurs, rubs or gallops. Lungs--clear bilaterally, no respiratory distress, no accessory muscle use. Abdomen--normal bowel sounds and soft. Nontender. Nondistended. Extremities--no cyanosis or clubbing. No edema. skin: normal color, no abnormal lymph nodes, no rash. Neurologic--cranial nerves II through XII grossly intact. Awake alert orientated, x3 , normal affect. Lab data at discharge: Laboratory Results - last 24 hr 08/16/18 08/18/18 08/19/18 02:52 19:47 05:54 WBC 6.78 RBC 3.02 L Hgb 8.2 L Hct 25.8 L MCV 85.4 MCH 27.2 MCHC 31.8 L RDW Std Deviation 50.6 H RDW Coeff of Aaron 17.4 H Plt Count 193 MPV 10.1 Immature Gran % (Auto) 1.8 Neut % (Auto) 62.5 Lymph % (Auto) 23.6 Real % (Auto) 9.4 Eos % (Auto) 2.4 Baso % (Auto) 0.3 Immature Gran # (Auto) 0.12 H Neut # (Auto) 4.24 Lymph # (Auto) 1.60 Real # (Auto) 0.64 H Eos # (Auto) 0.16 Baso # (Auto) 0.02 Absolute Nucleated RBC 0.09 H Nucleated RBC % (auto) 1.4 Polychromasia 1+ PT INR APTT PTT Ratio Sodium Potassium Chloride Carbon Dioxide Anion Gap BUN Creatinine Est Cr Clr Drug Dosing Est GFR ( Amer) Est GFR (Non-Af Amer) BUN/Creatinine Ratio Glucose POC Glucose 124 H Calcium Phosphorus Magnesium Total Bilirubin Direct Bilirubin AST ALT Alkaline Phosphatase Total Protein Albumin Globulin Albumin/Globulin Ratio Lipase Crossmatch See Detail 08/19/18 08/19/18 08/19/18 05:54 05:54 07:46 WBC RBC Hgb Hct MCV MCH MCHC RDW Std Deviation RDW Coeff of Aaron Plt Count MPV Immature Gran % (Auto) Neut % (Auto) Lymph % (Auto) Real % (Auto) Eos % (Auto) Baso % (Auto) Immature Gran # (Auto) Neut # (Auto) Lymph # (Auto) Real # (Auto) Eos # (Auto) Baso # (Auto) Absolute Nucleated RBC Nucleated RBC % (auto) Polychromasia PT 10.3 INR 1.0 APTT 21.6 PTT Ratio 0.8 Sodium 139 Potassium 3.6 Chloride 108 H Carbon Dioxide 24 Anion Gap 7.0 BUN 12 Creatinine 0.83 Est Cr Clr Drug Dosing 116.7 Est GFR ( Amer) 117.3 Est GFR (Non-Af Amer) 101.2 BUN/Creatinine Ratio 13.9 Glucose 107 H POC Glucose 109 H Calcium 7.8 L Phosphorus 3.4 Magnesium 1.7 L Total Bilirubin 0.2 Direct Bilirubin < 0.1 AST 22 ALT 30 Alkaline Phosphatase 46 Total Protein 5.9 L Albumin 2.8 L Globulin 3.1 Albumin/Globulin Ratio 0.9 Lipase 397 H Crossmatch 08/19/18 11:46 WBC RBC Hgb Hct MCV MCH MCHC RDW Std Deviation RDW Coeff of Aaron Plt Count MPV Immature Gran % (Auto) Neut % (Auto) Lymph % (Auto) Real % (Auto) Eos % (Auto) Baso % (Auto) Immature Gran # (Auto) Neut # (Auto) Lymph # (Auto) Real # (Auto) Eos # (Auto) Baso # (Auto) Absolute Nucleated RBC Nucleated RBC % (auto) Polychromasia PT INR APTT PTT Ratio Sodium Potassium Chloride Carbon Dioxide Anion Gap BUN Creatinine Est Cr Clr Drug Dosing Est GFR ( Amer) Est GFR (Non-Af Amer) BUN/Creatinine Ratio Glucose POC Glucose 147 H Calcium Phosphorus Magnesium Total Bilirubin Direct Bilirubin AST ALT Alkaline Phosphatase Total Protein Albumin Globulin Albumin/Globulin Ratio Lipase Crossmatch Total Time Total Time Spent Total Time Spent (In Minutes): 35 Total Time Includes: Examination of the Patient, Discharge Planning, Medication Reconciliation and Communication With Other Providers Discharge Plan Discharge Items Patient Disposition: Home - Self-Care Reason For Visit: UPPER GI BLEED, ANEMIA DUE TO ACUTE BLOOD LOSS Discharge Diagnosis: upper Gi bleeding alcoholic Condition: Fair Discharge Goals: Decrease discomfort, Diagnostic testing, Improve disease control, Improve function and Therapeutic intervention Activity: Resume your previous activity Non-emergency contact: Primary Care Provider and Recycling Sorter Call non-emergency contact if: you have any medication questions Follow-up/Referrals: Katt Hawk [Nurse Practitioner] - 09/20/18 9:45 am (Please, follow up at [facility] with Katt ROJAS on ThursdaySeptember 20 at 9:45 am. *This office is located in [facility] at [address] in [place]. If you need to change this appointment, call the office at [phone].) Diet: Heart Healthy, Low Potassium (2gm) and Low Sodium (2gm) Addtl Provider Instructions: you have Upper GI bleed you need to continue Protonix 40 mg p.o. twice daily Per gastroentology service, need to consider repeat EGD, [facility] does not have insurance at the present time. Once you does establish medical insurance, would recommend repeat evaluation with an EGD, RN please give Dr. Celso Alatorre gastroentology service telephone for him to call you have Alcohol heavy intake, fatty liver, need to continue folic acid, thiamine, and multiple vitamin you were having possible sepsis at admission, will give you oral Augmentin to completing to full course of antibiotics you need to follow up with your primary care physician in 1 week, - take medication as instructed, never overdose or any misuse, or take with alcohol, because misuse of medicine may cause organ damage or , call me, or your primary care physician if have questions of discharge medicaitons. - call your primary care physician, or go to local emergency room if has any fever/chill, chest pain, shortness of breathing, nausea/vomiting/abdominal pain, facial droop/slurry speech/local weakness, or if has any questions. - fall precaution - diet as instructed - you need to follow up with your subspecialist, such as gastroentology service, Prescriptions: New thiamine HCl (vitamin B1) [Vitamin B-1] 100 mg Tablet 100 mg PO QAM 30 Days Qty: 30 RF: 0 propranolol 10 mg Tablet 10 mg PO QID 30 Days Qty: 120 RF: 0 magnesium oxide 400 mg (241.3 mg magnesium) Tablet 400 mg PO HS 7 Days Qty: 7 RF: 0 pantoprazole 40 mg Tablet,Delayed Release (Dr/Ec) 40 mg PO BID 30 Days Qty: 60 RF: 0 folic acid 1 mg Tablet 1 mg PO QAM 30 Days Qty: 30 RF: 0 Multi-Vitamins with Iron tablet,chewable 1 tab PO DAILY Qty: 30 RF: 0 amoxicillin-pot clavulanate [Augmentin] 875-125 mg tablet 1 tab PO BID Qty: 7 RF: 0 Discontinued omeprazole 20 mg Capsule,Delayed Release(Dr/Ec) 20 mg PO DAILY RF: 0 Stand-Alone Forms: [facility] Discharge Orders: Discharge Order (Routine); Ordered 08/19/18 Ordered By: Aquilino Alvarez Admission Data Admit Date/Time: 08/16/18 05:12 Attending Provider: Aquilino Alvarez Admit Provider: Awais Naqvi Primary Care Provider: PCP,NO Other Providers: Awais Naqvi ; Pranav Reyna ; Celso Alatorre Service: Telemetry Other Interventions: Discharge Summary Assessment (RN) Last Done: 08/19/18 11:26 DC Date/Time DO NOT enter until pt leaves facility: 08/19/18 14:36
== END 2018-08-19 14:36 | disposition home or self-care (01) | DRG 368 ==
LOC: ED 02:39 → SUATTDRO 05:12 → 1E 05:12 → 2S 08-17 14:30 → 4E 08-18 16:27